=== PATIENT | female | born 1955 | race African-American/Black ===

== ENCOUNTER → 2017-12-11 | Outpatient (CLI) | payer MEDICARE, OTHER ==
[2014-09-07 14:52] VITALS: BP 101/64
[~2017-12-11] MED LIST: ACET500T68 PO; ACID1TAB3 PO; ALBU2.5V5 NEB; ALPR0.5T6 PO; BACL10TA PO; BISA10SU2 RC; CARB15DR3 OP; CIPR500T PO; CYAN10005 PO; DOCU-109 PO; ESCITALOPRAM OX20 MG PO; FAMO20TA38 PO; FENT1PAT15 TD; FLUC100T4 PO; GABA-586 PO; HC/M25OI TP; LORA10TA68 PO; MAGN2400 PO; MULT1TAB52 PO; OLOP2.5D OP; ONDA4TAB11 PO; OXYC-411 PO; OXYC20TA34 PO; OXYM30SP NS; POLY17PO5 PO; PRAV20TA2 PO; PROM118S5 PO; SIME125T PO; SPIR25TA PO; [UNRECOGNIZED DRUG - CODE] PO
--- NOTE | 2017-12-11 16:37 | RAD ---
CT study of the abdomen and pelvis without contrast Clinical indications: Right flank pain. History of stones. TECHNIQUE: Noncontrast helical CT scanning of the abdomen and pelvis was performed. Without contrast, the sensitivity to detect organ pathology and GI tract pathology is decreased. PQRS compliance Statement One or more of the following individualized dose reduction techniques were utilized for this study: 1. Automated exposure control 2. Adjustment of the mA and/or kV according to patient size 3. Use of iterative reconstruction technique COMPARISON: None available. FINDINGS: There is artifact throughout the study related to the patient's larger body habitus. The liver is unremarkable. The spleen is not enlarged. The pancreas is unremarkable on this noncontrast study. The gallbladder is not apparent and therefore appears to be surgically absent. No extrahepatic biliary ductal dilatation is seen. No adrenal mass is evident. There is a staghorn calculus within the upper pole of the left kidney measuring 36 mm in size. Smaller stones are seen within the mid aspect of the left kidney. Stones of the right kidney are seen. The largest is seen within the upper pole measuring 12 mm in size. No hydronephrosis or hydroureter is seen on either side. No ureteral stone is evident. No renal mass is seen on either side on this noncontrast study. No perinephric fluid collection or inflammatory stranding is seen. 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 Urinary bladder is mildly distended. The urinary bladder wall is smooth. Multiple radiopaque stones are seen within the lumen of the posterior right side of the urinary bladder. No uterine mass is seen. No dominant ovarian cyst or mass is evident. No focal aneurysmal dilatation of the abdominal aorta is seen. No enlarged abdominal or pelvic lymphadenopathy is evident. No obstructive bowel pattern is evident. The appendix is normal. The terminal ileum is unremarkable. Mild fecal retention is seen throughout the colon. No diverticulitis is evident. No free air or free fluid or mesenteric edema is seen. There is infiltrate or atelectasis in the right lower lobe. No osteolytic process is evident. IMPRESSION: Bilateral renal stones. Upper pole staghorn calculus of the left kidney. No hydronephrosis or hydroureter or ureteral stone is evident. Multiple stones are seen within the urinary bladder on the right side posteriorly. No acute abnormality of the abdomen or pelvis is evident. Infiltrate or atelectasis of the posterior right lower lobe. Recommend 2 view chest x-ray for further evaluation. Electronically signed by: Luis Allison MD (12/11/2017 4:33 PM) [facility]
== END | disposition home or self-care (01) ==
LOC: CT 14:52
PROVIDERS: ATTEND Urology
DX: N20.0 Calculus of kidney (principal); I10 Essential (primary) hypertension
CPT/HCPCS: 74176

== ENCOUNTER 2018-02-08 02:19 | Inpatient (IN) | payer MEDICARE, OTHER ==
[~2018-02-08] VITALS: Ht 162.6 cm; Wt 135.9 kg
[2018-02-08] VITALS (18 sets, daily range): BP systolic 92–158; BP diastolic 49–74
[2018-02-08] MEDS ORDERED: IV NORMAL SALINE 1,000ML 1,000 ML IV SCH (02:31)
--- NOTE | 2018-02-08 02:31 | ED.ADGEN ---
Past History Past Medical History: Bronchitis, CAD, CHF, COPD, Dementia, Depression, Diabetes, Stroke, UTI, Other Past Surgical History: No Surgical History Alcohol Use: None Drug Use: Opiates Adult General Chief Complaint Chief Complaint -Grunts with noxious stimuli- HPI HPI Patient is a 62 year old female who presents with above hx and complaints of fever and mental status changes at [place]. Pt. per paramedics was hypoxia on arrival. Pt. normally on chronic oxygen dependence of 2- 4 Lit. NC for her hx. of COPD and CHF. Pt. know diabetic -glucose via paramedics was 151. Patient currently very sedate, mental response with noxious stimuli. Snoring respirations. Pt. resident at [facility] 06/23/2012. Patient has additional medical history of hypertension, coronary artery disease, hyperlipidemia, major depressive disorder, chronic respiratory failure with hypoxia, history of episodic respiratory hypercarbia, contraction of muscles left hand, urinary incontinence , GERD, obstructive sleep apnea, morbid obesity, generalized deconditioning. Pt. follows with Dr. Correia. Review of Systems Review of Systems Hx. fever. Pt. poor historian Family History Family History Not currently available Current Medications Current Medications Current Medications Medications (Trade) Dose Ordered Sig/Sandra Start Time Stop Time Status Last Admin Dose Admin Albuterol/ Ipratropium (Duoneb) 3 ml RTQID 02/08/18 08:00 Aspirin (Aspirin) 300 mg 1X ONCE 02/08/18 03:45 02/08/18 03:46 DC 02/08/18 05:57 300 MG Aspirin (Children'S Aspirin) 324 mg 1X ONCE 02/08/18 02:45 02/08/18 03:45 DC Ceftriaxone Sodium 1 gm/ Sodium Chloride 50 ml @ 100 mls/hr DAILY 02/08/18 09:00 UNV Ceftriaxone Sodium (Rocephin Im) 1 gm 1X ONCE 02/08/18 03:00 02/08/18 03:45 DC 02/08/18 05:54 1 GM Ceftriaxone Sodium (Rocephin) 1 gm Q24H 02/09/18 05:00 Enoxaparin Sodium (Lovenox 120mg Syringe) 120 mg 1X ONCE 02/08/18 04:15 02/08/18 04:16 DC 02/08/18 05:53 120 MG Enoxaparin Sodium (Lovenox 150mg Syringe) 130 mg BID 02/08/18 21:00 Info (Do NOT chart on this entry -- for MONITORING) 1 each PRN DAILY PRN 02/08/18 04:15 02/10/18 04:14 Iohexol (Omnipaque 300 Mg/ml) 75 ml 1X ONCE 02/08/18 04:15 02/08/18 04:16 DC 02/08/18 04:15 75 ML Lactated Ringer's 1,000 ml @ 1,000 mls/hr 1X ONCE 02/08/18 04:00 02/08/18 04:59 DC Methylprednisolone Sodium Succinate (SOLU-Medrol 125MG VIAL) 125 mg DAILY 02/09/18 05:00 Ondansetron HCl (Zofran) 4 mg PRN Q4HRS PRN 02/08/18 05:00 02/09/18 04:59 02/08/18 05:53 4 MG Sodium Chloride 250 ml @ As Directed STK-MED ONCE 02/08/18 05:33 02/08/18 05:34 DC Vancomycin HCl (Vanco Per Pharmacy) 1 each PRN DAILY PRN 02/08/18 05:00 UNV Vancomycin HCl (Vancomycin) 1 gm STK-MED ONCE 02/08/18 05:34 02/08/18 05:35 DC Vancomycin HCl 1 gm/Sodium Chloride 250 ml @ 250 mls/hr 1X ONCE 02/08/18 03:00 02/08/18 03:59 DC 02/08/18 05:53 250 MLS/HR See Nursing for NH meds. Allergies Allergies Allergies Coded Allergies Type Severity Reaction Last Updated Verified Penicillins Allergy Severe 02/08/18 Yes I S O L A T I O N *CONTACT* Allergy Unknown 02/08/18 Yes coconut Allergy Unknown 02/08/18 Yes Physical Exam Physical Exam Constitutional: In acute distress, morbidly ill appearance. [] HENT: Normocephalic, atraumatic, bilateral external ears normal, oropharynx moist, no oral exudates, nose normal. [] Eyes: PERRLA, EOMI, conjunctiva normal, no discharge. [] Neck: Normal range of motion, no tenderness, supple, no stridor. More than 17 inches circumference. Upper airway snoring Cardiovascular: Tachycardia Heart rate regular rhythm, no murmur [], PMI to the left Lungs & Thorax: Bilateral breath sounds equal at apex with scattered rhonchi and crackles and wheezing on auscultation []markedly decreased lung volumes. Abdomen: Bowel sounds normal, soft, no tenderness, no masses, no pulsatile masses. [] Morbidly obese. Breakdown of skin in pannus and in groin Skin: Warm, dry, no erythema,yeast /Evangelina rash pannus, left breast cleavage and groin Back: No tenderness, no CVA tenderness. [] Extremities: No tenderness, no cyanosis, no clubbing, ROM intact, bilateral ankle edema. [] Contracted left arm. Dorsal foot plantar flexion contractions Neurologic: Responds only to noxious stimuli, min. response to noxious stimuli of limbs.,will with draw, and cross react] Psychologic: Affect flat, Current Patient Data Lab Results Laboratory Tests Test 02/08/18 02:35 02/08/18 02:44 02/08/18 03:01 02/08/18 03:22 Blood pH 7.37 (7.35-7.45) Blood Gas PCO2 73 mmHg (35-45) *H Blood Gas PO2 71 mmHg (80-100) L Blood Gas HCO3 42 mmol/L (22-26) H Arterial Bld O2 Saturation (Calc) 92 % (92-99) FiO2 36 % Prothrombin Time 10.1 SEC (9.4-11.4) Prothrombin Time INR 1.0 (0.9-1.1) PTT 27 SEC (23-33) D-Dimer (Samantha) 1.05 mg/L (0.00-0.50) H Sodium Level 137 mmol/L (136-145) Potassium Level 5.0 mmol/L (3.5-5.1) Chloride Level 97 mmol/L (98-107) L Carbon Dioxide Level 41 mmol/L (21-32) H Anion Gap -1 (6-14) L Blood Urea Nitrogen 13 mg/dL (7-20) Creatinine 1.6 mg/dL (0.6-1.0) H Estimated GFR (Cockcroft-Gault) 39.3 Glucose Level 173 mg/dL (70-99) H Lactic Acid Level 1.2 mmol/L (0.4-2.0) Calcium Level 10.7 mg/dL (8.5-10.1) H Magnesium Level 1.8 mg/dL (1.8-2.4) Total Bilirubin 0.3 mg/dL (0.2-1.0) Direct Bilirubin < 0.1 mg/dL (0.0-0.2) Aspartate Amino Transferase (AST) 29 U/L (15-37) Alanine Aminotransferase (ALT) 24 U/L (14-59) Alkaline Phosphatase 76 U/L (46-116) Creatine Kinase 43 U/L (26-192) Troponin I Quantitative < 0.017 ng/mL (0-0.055) [id number] Natriuretic Peptide 100 pg/mL (0-124) Total Protein 8.0 g/dL (6.4-8.2) Albumin 2.6 g/dL (3.4-5.0) L Lipase 50 U/L (73-393) L Urine Collection Type U cath Urine Color Yellow Urine Clarity Hazy Urine pH 7.0 Urine Specific [place] 1.015 Urine Protein Trace (NEG-TRACE) Urine Glucose (UA) Neg mg/dL (NEG) Urine Ketones (Stick) Neg mg/dL (NEG) Urine Blood Large (NEG) Urine Nitrite Neg (NEG) Urine Bilirubin Neg (NEG) Urine Urobilinogen Dipstick 0.2 mg/dL (0.2 mg/dL) Urine Leukocyte Esterase Large (NEG) Urine RBC >40 /HPF (0-2) Urine WBC >40 /HPF (0-4) Urine Squamous Epithelial Cells Occ /LPF Urine Bacteria Many /HPF (0-FEW) Urine Opiates Screen Neg (NEG) Urine Methadone Screen Neg (NEG) Urine Barbiturates Neg (NEG) Urine Phencyclidine Screen Neg (NEG) Urine Amphetamine/Methamphetamine Neg (NEG) Urine Benzodiazepines Screen Neg (NEG) Urine Cocaine Screen Neg (NEG) Urine Cannabinoids Screen Neg (NEG) Urine Ethyl Alcohol Neg (NEG) White Blood Count 20.4 x10^3/uL (4.0-11.0) H Red Blood Count 4.10 x10^6/uL (3.50-5.40) Hemoglobin 11.8 g/dL (12.0-15.5) L Hematocrit 35.7 % (36.0-47.0) L Mean Corpuscular Volume 87 fL (79-100) Mean Corpuscular Hemoglobin 29 pg (25-35) Mean Corpuscular Hemoglobin Concent 33 g/dL (31-37) Red Cell Distribution Width 14.9 % (11.5-14.5) H Platelet Count 319 x10^3/uL (140-400) Neutrophils (%) (Auto) 91 % (31-73) H Lymphocytes (%) (Auto) 4 % (24-48) L Monocytes (%) (Auto) 5 % (0-9) Eosinophils (%) (Auto) 0 % (0-3) Basophils (%) (Auto) 0 % (0-3) Neutrophils # (Auto) 18.5 x10^3uL (1.8-7.7) H Lymphocytes # (Auto) 0.8 x10^3/uL (1.0-4.8) L Monocytes # (Auto) 1.0 x10^3/uL (0.0-1.1) Eosinophils # (Auto) 0.0 x10^3/uL (0.0-0.7) Basophils # (Auto) 0.0 x10^3/uL (0.0-0.2) Segmented Neutrophils % 88 % (35-66) H Band Neutrophils % 8 % (0-9) Lymphocytes % 2 % (24-48) L Monocytes % 2 % (0-10) Platelet Estimate Adequate (ADEQUATE) EKG EKG My interpretation of EKG shows a sinus rhythm at 93 bpm. There are contour abnormalities in anterior lateral region. No findings acute STEMI with contralateral changes.[] Radiology/Procedures Radiology/Procedures My interpretation of chest x-ray shows cardiomegaly[]. My interpretation CT of head shows no shift, mass, edema, bleed, or bleed. Does have findings of white matter disease. Appears had old lacunar infarct. Course & Med Decision Making Course & Med Decision Making Pertinent Labs and Imaging studies reviewed. (See chart for details) Pt. mental status improved shortly after application BiPap 16/4, on 35% Oxygen. Critical care. 120 min [] Final Impression Final Impression 1. Mental status change 2. Respiratory Failure-hypoxia and hypercarbia 3. DM-[]173 4. UTI 5. Sepsis 6. Leukocytosis 20.4 7. Elevated Creat. 1.6 8. Malnutrition- Alb. 2.6 9. Anemia - 11.8 10. Hx. COPD 11. Hx. CADz 12. Hx of Depression 13. Morbid Obesity Dragon Disclaimer Dragon Disclaimer This electronic medical record was generated, in whole or in part, using a voice recognition dictation system. BRYANNA JOHANSEN MD Feb 08, 2018 02:30
[2018-02-08] MEDS ORDERED: ASPIRIN 81 MG TAB.CHEW PO ONE (02:45)
[2018-02-08 02:58] LABS: BGAS PH 7.37 (7.35-7.45)
[2018-02-08] MEDS ORDERED: cefTRIAXone IM 1 GM VIAL IM ONE (03:00)
[2018-02-08] MEDS ORDERED: VANCOMYCIN 1 GM in IV NORMAL SALINE 250ML 250 ML IV ONE ×2 (03:00→08:00)
[2018-02-08] MEDS ORDERED: IPRATRPIUM/ALBUTEROL 0.5/2.5MG 3 ML NEBU. NEB ONE (03:00)
--- NOTE | 2018-02-08 03:13 | EKG ---
[address] [address] Test Date: 2018-02-08 Test Time: 03:09:15 Pat Name: TROY SANTIZO Department: Room: Gender: F Oil Well Engineer: : 1955 Requested By: BRYANNA JOHANSEN Order Number: [id number] Reading MD: Gaurav Haider Measurements Intervals [place] Rate: 93 P: 52 W[place]: 136 QRS: 11 QRSD: 98 T: 52 QT: 318 QTc: 398 Interpretive Statements SINUS RHYTHM Electronically Signed On 02-09-2018 11:10:34 CDT by Gaurav Haider
[2018-02-08 03:30] LABS: CLARITY,URINE HAZY; COLOR,URINE YELLOW
[2018-02-08 03:31] LABS: BACTERIA,URINE MANY /HPF (0-FEW); BILIRUBIN,URINE NEG (NEG); GLUCOSE,URINE NEG (NEG); NITRITE,URINE NEG (NEG); RBC,URINE >40 /HPF (0-2); SQUAMOUS EPITHELIAL CELL,UR OCC /LPF; UROBILINOGEN,URINE 0.2 mg/dL (0.2 mg/dL); WBC,URINE >40 /HPF (0-4)
[2018-02-08 03:37] LABS: BASO % 0 % (0-3); EOS % 0 % (0-3); HEMATOCRIT 35.7 % (36.0-47.0); HEMOGLOBIN 11.8 g/dL (12.0-15.5); LYMPH # 0.8 x10^3/uL (1.0-4.8); LYMPH % 4 % (24-48); MEAN CORPUSCULAR HEMOGLOBIN 29 pg (25-35); MEAN CORPUSCULAR HGB CONC 33 g/dL (31-37); MEAN CORPUSCULAR VOLUME 87 fL (79-100); MONO % 5 % (0-9); NEUT # 18.5 x10^3uL (1.8-7.7); NEUT % 91 % (31-73); PLATELET COUNT 319 x10^3/uL (140-400); RED CELL DISTRIBUTION WIDTH 14.9 % (11.5-14.5); WHITE BLOOD COUNT 20.4 x10^3/uL (4.0-11.0)
[2018-02-08 03:40] LABS: BARBITURATES NEG (NEG); BENZODIAZEPINES NEG (NEG); CANNABINOIDS NEG (NEG); COCAINE NEG (NEG); METHADONE NEG (NEG); OPIATES NEG (NEG); PHENCYCLIDINE NEG (NEG)
[2018-02-08 03:42] LABS: AMPHETAMINE/METHAMPHETAMINE NEG (NEG)
[2018-02-08 03:43] LABS: ALBUMIN 2.6 g/dL (3.4-5.0); ALK PHOS 76 U/L (46-116); ALT (SGPT) 24 U/L (14-59); ANION GAP -1 (6-14); AST (SGOT) 29 U/L (15-37); BLOOD UREA NITROGEN 13 mg/dL (7-20); CALCIUM 10.7 mg/dL (8.5-10.1); CARBON DIOXIDE 41 mmol/L (21-32); CHLORIDE 97 mmol/L (98-107); CREATININE 1.6 mg/dL (0.6-1.0); DIRECT BILIRUBIN < 0.1 mg/dL (0.0-0.2); GFR 39.3; GLUCOSE 173 mg/dL (70-99); LIPASE 50 U/L (73-393); MAGNESIUM 1.8 mg/dL (1.8-2.4); SODIUM 137 mmol/L (136-145); TOTAL BILIRUBIN 0.3 mg/dL (0.2-1.0)
[2018-02-08] MEDS ORDERED: ASPIRIN 300 MG SUPP.RECT PR ONE (03:45)
[2018-02-08 03:58] LABS: % BANDS 8 % (0-9); % LYMPHS 2 % (24-48); % MONOS 2 % (0-10); % SEGS 88 % (35-66); PLT ESTIMATE ADEQUATE (ADEQUATE)
[2018-02-08] MEDS ORDERED: IV RINGERS SOLUTION,LACTATED 1,000 ML IV ONE (04:00)
[2018-02-08] MEDS ORDERED: IOHEXOL 300 MG/ML 75 ML VIAL. IV ONE (04:15)
[2018-02-08] MEDS ORDERED: ENOXAPARIN ** NOTE DOSE ** SYRINGE SQ ONE (04:15)
[2018-02-08] MEDS ORDERED: CONTRAST GIVEN MC PRN (04:15)
[2018-02-08] MEDS ORDERED: methylPREDNISolone SOD SUCC PF 125 MG/2 ML VIAL. IV ONE (04:15)
[2018-02-08] MEDS ORDERED: ONDANSETRON PF 4 MG/2 ML VIAL. IV PRN (05:00)
[2018-02-08] MEDS ORDERED: VANCOMYCIN PER PHARMACY MC PRN (05:00)
--- NOTE | 2018-02-08 05:04 | RAD ---
PQRS Compliance statement: One or more of the following individualized dose reduction techniques were utilized for this examination: 1. Automated exposure control. 2. Adjustment of the mA and/or kV according to patient size. 3. Use of iterative reconstruction technique. Indication:hypoxia, unresponsive
patient weights over 300 lbs and was rubbing the aperture of the gantry TECHNIQUE: CT head without IV contrast COMPARISON:09/05/2014 FINDINGS: No pathologic extra-axial or intra-axial fluid collection. The ventricles and basal cisterns are within normal limits. No acute intracranial bleed. Small area of low-attenuation is seen in the right basal ganglia with CSF density. Periventricular low-attenuation is seen along the right lateral ventricle. No suspicious bony lesion. Visualized paranasal sinuses and mastoid air cells are clear. Orbits within normal limits. IMPRESSION: 1. No acute intracranial process. If concern for acute ischemic stroke is high, please consider MRI brain. 2. Right basal ganglia lacunar infarct, age indeterminate but most likely old. Electronically signed by: Pantera Lewis DO (02/08/2018 5:01 AM) [facility]
--- NOTE | 2018-02-08 05:14 | RAD ---
PQRS Compliance statement: One or more of the following individualized dose reduction techniques were utilized for this examination: 1. Automated exposure control. 2. Adjustment of the mA and/or kV according to patient size. 3. Use of iterative reconstruction technique. Indication:hypoxia, copd, unresponsive
patient weights over 300 lbs and was rubbing the aperture of the gantry TECHNIQUE: CT angiogram of the chest with IV contrast with multiplanar MIP reformats. COMPARISON: None FINDINGS: Nondiagnostic PE study due to contrast bolus timing. Heart is normal in size. No pericardial or pleural effusion. Calcified large mediastinal lymph nodes seen.. No enlarged axillary, mediastinal or hilar lymph nodes. Patulous esophagus. Subsegmental atelectasis in the right lower lobe. Otherwise, lungs are clear. Scattered areas of mosaic attenuation is seen in the lungs. No suspicious bony lesion. IMPRESSION: 1. Nondiagnostic PE study due to technical difficulties while scanning. 2. No pneumonia. 3. Scattered areas of mosaic attenuation the lungs may be from small vessel or small airway disease. Electronically signed by: Pantera Lewis DO (02/08/2018 5:11 AM) [facility]
[2018-02-08] MEDS ORDERED: IV NORMAL SALINE 250ML 250 ML ONE (05:33)
[2018-02-08] MEDS ORDERED: VANCOMYCIN 1 GM VIAL. ONE (05:34)
--- NOTE | 2018-02-08 07:45 | RAD ---
Portable chest, 02/08/2018: HISTORY: Respiratory distress, patient unresponsive Comparison is made to a study from 09/05/2014. The heart is at the upper limits of normal in size. There are large calcified right mediastinal and hilar lymph nodes. No pulmonary infiltrate is seen. There is no evidence of pleural fluid. IMPRESSION: 1. Borderline cardiomegaly 2. No acute infiltrates. Electronically signed by: Jeison Torres MD (02/08/2018 7:42 AM) [facility]
[2018-02-08] MEDS: IPRATRPIUM/ALBUTEROL 0.5/2.5MG 3 ML NEBU. NEB SCH ×4 (08:20→20:50)
[2018-02-08] MEDS ORDERED: ASPI-612 PO (08:30)
[2018-02-08] MEDS ORDERED: BENZ1LOZ48 MM (08:30)
[2018-02-08] MEDS ORDERED: ATOR10TA PO (08:30)
[2018-02-08] MEDS ORDERED: GUAI600T47 PO (08:30)
[2018-02-08] MEDS ORDERED: OXYB5TAB7 PO (08:56)
[2018-02-08] MEDS ORDERED: MINE473L5 TP (08:56)
[2018-02-08] MEDS ORDERED: AMLO10TA6 PO (08:56)
[2018-02-08] MEDS ORDERED: ALPR0.25 PO (08:56)
[2018-02-08] MEDS ORDERED: SIME80TA14 PO (08:56)
[2018-02-08] MEDS ORDERED: DIPH25CA58 PO (08:56)
[2018-02-08] MEDS ORDERED: GUAI118L59 PO (08:56)
[2018-02-08] MEDS ORDERED: TRAM50TA PO (08:56)
[2018-02-08] MEDS ORDERED: CITA10TA8 PO (08:56)
[2018-02-08] MEDS ORDERED: FAMO20TA5 PO (08:56)
[2018-02-08 10:29] LABS: BGAS PH 7.4 (7.35-7.45)
[2018-02-08] MEDS: IV NORMAL SALINE 1,000ML 1,000 ML IV SCH ×2 (11:10→18:08)
[2018-02-08 17:41] LABS: BGAS PH 7.4 (7.35-7.45)
--- NOTE | 2018-02-08 17:55 | RAD ---
Bilateral Leg Venous Doppler Ultrasound, 02/08/2018 Indication: Bilateral lower extremity swelling, elevated d-dimer Comparison: None available Procedure: Real-time grayscale, color flow color duplex Doppler and spectral analysis are obtained with and without compression in the area of the common femoral vein, superficial femoral vein - femoral vein junction, main femoral vein (superficial femoral vein) and popliteal vein. Veins of the proximal calf are also imaged. Findings: There is normal duplex flow, color flow and compressibility of all visualized vein segments. No evidence of deep venous thrombus is present. Impression: Negative venous Doppler of bilateral lower extremity Electronically signed by: Myranda Mesa MD (02/08/2018 5:52 PM) [facility]
[2018-02-08] MEDS: ENOXAPARIN ** NOTE DOSE ** SYRINGE SQ SCH (21:56)
[2018-02-08] MEDS: LACTOBACILLUS RHAMNOSUS GG 1 CAPSULE. PO SCH (21:56)
[2018-02-08] MEDS ORDERED: MINERAL OIL/PETROLATUM TOPICAL CREAM 113GM JAR. TP PRN (22:45)
[2018-02-08] MEDS ORDERED: BENZOCAINE/MENTHOL LOZNGE 18'S BOX. MM PRN (22:45)
[2018-02-08] MEDS ORDERED: FAMOTIDINE 20 MG TABLET PO PRN (22:45)
[2018-02-08] MEDS ORDERED: guaiFENesin DM 200MG/20MG 10 ML SYRUP PO PRN (22:45)
[2018-02-08] MEDS ORDERED: SIMETHICONE 80 MG TAB.CHEW PO PRN (22:45)
[2018-02-08] MEDS ORDERED: BISACODYL 10 MG SUPP.RECT RC PRN (22:45)
[2018-02-08] MEDS ORDERED: ALBUTEROL SULFATE 2.5 MG/3 ML NEBU. NEB PRN (22:45)
[2018-02-08] MEDS ORDERED: ONDANSETRON ODT 4 MG TAB.RAPDIS PO PRN (22:45)
[2018-02-08] MEDS ORDERED: MAGNESIUM HYDROXIDE 2,400 MG/30 ML ORAL.SUSP. PO PRN (22:45)
--- NOTE | 2018-02-08 23:52 | PDOC1 ---
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 Of Magnesia) 22:45 Mineral PHA 02/08/18 In Process Oil/Petrolatum 22:45 Multivitamin With PHA 02/09/18 In Process Mineral (Thera-M Plus) 09:00 Ondansetron Odt PHA 02/08/18 In Process (Zofran Odt) 22:45 Polyethylene Glycol PHA 02/09/18 In Process 3350 (Miralax) 09:00 Comprehensive LAB 02/08/18 In Process Metabolic Panel 22:47 Cbc W Autodiff LAB 02/08/18 In Process 22:47 Vitamin D,Total LAB 02/08/18 In Process 22:47 Intact Parathyroid LAB 02/08/18 In Process Hormone 22:47 Vital Signs Date Time Temp Pulse Resp B/P (MAP) Pulse Ox O2 Delivery O2 Flow Rate FiO2 02/08/18 22:48 90 32 158/73 (101) 98 Room Air 02/08/18 20:53 4.0 02/08/18 12:00 97.1 ASHLEY RIVERA DO Feb 08, 2018 23:52
[2018-02-08 23:57] LABS: BASO # 0.1 x10^3/uL (0.0-0.2); BASO % 1 % (0-3); EOS % 0 % (0-3); HEMATOCRIT 34.7 % (36.0-47.0); HEMOGLOBIN 10.9 g/dL (12.0-15.5); LYMPH % 4 % (24-48); MEAN CORPUSCULAR HEMOGLOBIN 28 pg (25-35); MEAN CORPUSCULAR HGB CONC 32 g/dL (31-37); MEAN CORPUSCULAR VOLUME 88 fL (79-100); MONO # 1.3 x10^3/uL (0.0-1.1); MONO % 5 % (0-9); NEUT # 23.7 x10^3uL (1.8-7.7); NEUT % 91 % (31-73); PLATELET COUNT 322 x10^3/uL (140-400); RED BLOOD COUNT 3.93 x10^6/uL (3.50-5.40); RED CELL DISTRIBUTION WIDTH 15.3 % (11.5-14.5); WHITE BLOOD COUNT 26.1 x10^3/uL (4.0-11.0)
[2018-02-09] VITALS (12 sets, daily range): BP systolic 1–148; BP diastolic 54–81
[2018-02-09] MEDS: ACETAMINOPHEN 500 MG TABLET PO PRN ×4 (00:09→21:40)
[2018-02-09] MEDS: IV NORMAL SALINE 1,000ML 1,000 ML IV SCH ×2 (00:12→08:39)
[2018-02-09 00:17] LABS: ALBUMIN 2.2 g/dL (3.4-5.0); ALBUMIN/GLOBULIN RATIO 0.4 (1.0-1.7); CREATININE 1.1 mg/dL (0.6-1.0); GFR 60.5; POTASSIUM 4.3 mmol/L (3.5-5.1); TOTAL BILIRUBIN 0.2 mg/dL (0.2-1.0); TOTAL PROTEIN 7.4 g/dL (6.4-8.2)
[2018-02-09] MEDS: IPRATRPIUM/ALBUTEROL 0.5/2.5MG 3 ML NEBU. NEB SCH ×4 (04:40→19:32)
[2018-02-09] MEDS: cefTRIAXone IV Push 1 GM VIAL. IVP SCH (04:54)
[2018-02-09] MEDS: methylPREDNISolone SOD SUCC PF 125 MG/2 ML VIAL. IV SCH ×2 (04:55→08:37)
[2018-02-09] MEDS: VANCOMYCIN 2 GM in IV NORMAL SALINE 500ML 500 ML IV SCH (06:10)
[2018-02-09 07:00] LABS: CALCIUM 9.9 mg/dL (8.5-10.1); GFR 67.5; POTASSIUM 4.4 mmol/L (3.5-5.1)
[2018-02-09 07:01] LABS: BASO % 0 % (0-3); EOS % 0 % (0-3); HEMATOCRIT 35.2 % (36.0-47.0); HEMOGLOBIN 11.3 g/dL (12.0-15.5); LYMPH # 1.3 x10^3/uL (1.0-4.8); LYMPH % 6 % (24-48); MEAN CORPUSCULAR HEMOGLOBIN 28 pg (25-35); MEAN CORPUSCULAR HGB CONC 32 g/dL (31-37); MEAN CORPUSCULAR VOLUME 88 fL (79-100); MONO # 1.4 x10^3/uL (0.0-1.1); MONO % 7 % (0-9); NEUT # 19.3 x10^3uL (1.8-7.7); NEUT % 87 % (31-73); PLATELET COUNT 310 x10^3/uL (140-400); RED BLOOD COUNT 3.99 x10^6/uL (3.50-5.40); RED CELL DISTRIBUTION WIDTH 15.3 % (11.5-14.5); WHITE BLOOD COUNT 22.1 x10^3/uL (4.0-11.0)
[2018-02-09] MEDS ORDERED: HYDROCORTISONE 1% TOPICAL CREAM 30GM TUBE. TP PRN (07:15)
[2018-02-09] MEDS ORDERED: POLYVINYL ALCOHOL/POVIDONE/PF OPHTH SOLUTION DROPERETTE. OU PRN (07:15)
[2018-02-09] MEDS: LACTOBACILLUS RHAMNOSUS GG 1 CAPSULE. PO SCH ×4 (07:19→20:39)
[2018-02-09] MEDS: ENOXAPARIN ** NOTE DOSE ** SYRINGE SQ SCH ×2 (08:36→20:39)
[2018-02-09] MEDS: DOCUSATE SODIUM 100 MG CAPSULE PO SCH (08:37)
[2018-02-09] MEDS: ATORVASTATIN CALCIUM 10 MG TABLET. PO SCH (08:37)
[2018-02-09] MEDS: CYANOCOBALAMIN (VITAMIN B-12) 1,000 MCG TABLET. PO SCH (08:37)
[2018-02-09] MEDS: CALCIUM POLYCARBOPHIL 625 MG TABLET PO SCH ×2 (08:37→20:38)
[2018-02-09] MEDS: ASPIRIN ENTERIC COATED 81 MG TABLET.DR. PO SCH (08:37)
[2018-02-09] MEDS: amLODIPine BESYLATE 10 MG TABLET PO SCH (08:37)
[2018-02-09] MEDS: ALPRAZolam 0.25 MG TABLET PO PRN ×2 (08:37→14:41)
[2018-02-09] MEDS: MULTIVITAMIN with MINERAL TABLET. PO SCH (08:37)
[2018-02-09] MEDS: GABAPENTIN 300 MG CAPSULE. PO SCH ×3 (08:37→20:38)
[2018-02-09] MEDS: POLYETHYLENE GLYCOL 3350 17 GM PACKET. PO SCH (08:38)
[2018-02-09 09:42] LABS: % BANDS 5 % (0-9); % LYMPHS 11 % (24-48); % MONOS 5 % (0-10); % SEGS 78 % (35-66); PLT ESTIMATE ADEQUATE (ADEQUATE)
[2018-02-09] MEDS: CITALOPRAM 10 MG TABLET. PO SCH (11:07)
[2018-02-09 12:50] LABS: BGAS PH 7.42 (7.35-7.45)
[2018-02-09] MEDS: traMADol 50 MG TABLET PO PRN (14:40)
[2018-02-09] MEDS: diphenhydrAMINE HCL 25 MG CAPSULE PO PRN (14:40)
--- NOTE | 2018-02-09 16:02 | PDOC ---
SUBJECTIVE: Patient has shown steady symptomatic improvement. She's been off bipap since yesterday afternoon alternating between room air and her home 2-4L O2 via NC with stable sats. Creatinine improved to 1.0 with hydration, vitamin D low 23.2 , ABGs continue to improve all parameters. I find her lying awake today, she states she does not recognize me from yesterday. Still having some body aches and dyspnea but says she's overall feeling better. She is concerned about her overall weakness and expresses interest in PT/OT. ' OBJECTIVE: Problems: Problems Medical Problems: (1) Hypercapnia Status: Acute (2) Mental status change Status: Acute Vital Signs: Vital Signs Date Time Temp Pulse Resp B/P (MAP) Pulse Ox O2 Delivery O2 Flow Rate FiO2 02/09/18 14:40 32 96 Nasal Cannula 3.0 02/09/18 11:00 76 132/76 (94) 02/09/18 08:00 98.4 I & O Intake and Output 02/09/18 07:00 Intake Total 3417 ml Output Total 2775 ml Balance 642 ml Intake Oral 620 ml IV Total 2797 ml Output Urine Total 2775 ml # Voids 2 Labs: Laboratory Tests Test 02/08/18 02:35 02/08/18 02:44 02/08/18 03:01 02/08/18 03:22 Blood Gas pH 7.37 (7.35-7.45) Blood Gas PCO2 73 mmHg (35-45) Blood Gas PO2 71 mmHg (80-100) Blood Gas HCO3 42 mmol/L (22-26) Arterial Bld O2 Saturation (Calc) 92 % (92-99) FiO2 36 % Prothrombin Time 10.1 SEC (9.4-11.4) Prothromb Time International Ratio 1.0 (0.9-1.1) Activated Partial Thromboplast Time 27 SEC (23-33) D-Dimer (Samantha) 1.05 mg/L (0.00-0.50) Sodium Level 137 mmol/L (136-145) Potassium Level 5.0 mmol/L (3.5-5.1) Chloride Level 97 mmol/L (98-107) Carbon Dioxide Level 41 mmol/L (21-32) Anion Gap -1 (6-14) Blood Urea Nitrogen 13 mg/dL (7-20) Creatinine 1.6 mg/dL (0.6-1.0) Estimated GFR (Cockcroft-Gault) 39.3 Glucose Level 173 mg/dL (70-99) Lactic Acid Level 1.2 mmol/L (0.4-2.0) Calcium Level 10.7 mg/dL (8.5-10.1) Magnesium Level 1.8 mg/dL (1.8-2.4) Total Bilirubin 0.3 mg/dL (0.2-1.0) Direct Bilirubin < 0.1 mg/dL (0.0-0.2) Aspartate Amino Transf (AST/SGOT) 29 U/L (15-37) Alanine Aminotransferase (ALT/SGPT) 24 U/L (14-59) Alkaline Phosphatase 76 U/L (46-116) Creatine Kinase 43 U/L (26-192) Troponin I Quantitative < 0.017 ng/mL (0-0.055) OZ-Iyy-M-Type Natriuretic Peptide 100 pg/mL (0-124) Total Protein 8.0 g/dL (6.4-8.2) Albumin 2.6 g/dL (3.4-5.0) Lipase 50 U/L (73-393) Thyroid Stimulating Hormone (TSH) 1.481 uIU/mL (0.358-3.740) Urine Collection Type U cath Urine Color Yellow Urine Clarity Hazy Urine pH 7.0 Urine Specific [place] 1.015 Urine Protein Trace (NEG-TRACE) Urine Glucose (UA) Neg mg/dL (NEG) Urine Ketones (Stick) Neg mg/dL (NEG) Urine Blood Large (NEG) Urine Nitrite Neg (NEG) Urine Bilirubin Neg (NEG) Urine Urobilinogen Dipstick 0.2 mg/dL (0.2 mg/dL) Urine Leukocyte Esterase Large (NEG) Urine RBC >40 /HPF (0-2) Urine WBC >40 /HPF (0-4) Urine Squamous Epithelial Cells Occ /LPF Urine Bacteria Many /HPF (0-FEW) Urine Opiates Screen Neg (NEG) Urine Methadone Screen Neg (NEG) Urine Barbiturates Neg (NEG) Urine Phencyclidine Screen Neg (NEG) Urine Amphetamine/Methamphetamine Neg (NEG) Urine Benzodiazepines Screen Neg (NEG) Urine Cocaine Screen Neg (NEG) Urine Cannabinoids Screen Neg (NEG) Urine Ethyl Alcohol Neg (NEG) White Blood Count 20.4 x10^3/uL (4.0-11.0) Red Blood Count 4.10 x10^6/uL (3.50-5.40) Hemoglobin 11.8 g/dL (12.0-15.5) Hematocrit 35.7 % (36.0-47.0) Mean Corpuscular Volume 87 fL (79-100) Mean Corpuscular Hemoglobin 29 pg (25-35) Mean Corpuscular Hemoglobin Concent 33 g/dL (31-37) Red Cell Distribution Width 14.9 % (11.5-14.5) Platelet Count 319 x10^3/uL (140-400) Neutrophils (%) (Auto) 91 % (31-73) Lymphocytes (%) (Auto) 4 % (24-48) Monocytes (%) (Auto) 5 % (0-9) Eosinophils (%) (Auto) 0 % (0-3) Basophils (%) (Auto) 0 % (0-3) Neutrophils # (Auto) 18.5 x10^3uL (1.8-7.7) Lymphocytes # (Auto) 0.8 x10^3/uL (1.0-4.8) Monocytes # (Auto) 1.0 x10^3/uL (0.0-1.1) Eosinophils # (Auto) 0.0 x10^3/uL (0.0-0.7) Basophils # (Auto) 0.0 x10^3/uL (0.0-0.2) Segmented Neutrophils % 88 % (35-66) Band Neutrophils % 8 % (0-9) Lymphocytes % 2 % (24-48) Monocytes % 2 % (0-10) Platelet Estimate Adequate (ADEQUATE) Test 02/08/18 10:15 02/08/18 17:20 02/08/18 17:36 02/08/18 23:45 Blood Gas pH 7.40 (7.35-7.45) 7.40 (7.35-7.45) Blood Gas PCO2 63 mmHg (35-45) 58 mmHg (35-45) Blood Gas PO2 82 mmHg (80-100) 70 mmHg (80-100) Blood Gas HCO3 39 mmol/L (22-26) 36 mmol/L (22-26) Arterial Bld O2 Saturation (Calc) 96 % (92-99) 93 % (92-99) FiO2 35 % 32 % Glucose (Fingerstick) 175 mg/dL (70-99) White Blood Count 26.1 x10^3/uL (4.0-11.0) Red Blood Count 3.93 x10^6/uL (3.50-5.40) Hemoglobin 10.9 g/dL (12.0-15.5) Hematocrit 34.7 % (36.0-47.0) Mean Corpuscular Volume 88 fL (79-100) Mean Corpuscular Hemoglobin 28 pg (25-35) Mean Corpuscular Hemoglobin Concent 32 g/dL (31-37) Red Cell Distribution Width 15.3 % (11.5-14.5) Platelet Count 322 x10^3/uL (140-400) Neutrophils (%) (Auto) 91 % (31-73) Lymphocytes (%) (Auto) 4 % (24-48) Monocytes (%) (Auto) 5 % (0-9) Eosinophils (%) (Auto) 0 % (0-3) Basophils (%) (Auto) 1 % (0-3) Neutrophils # (Auto) 23.7 x10^3uL (1.8-7.7) Lymphocytes # (Auto) 1.0 x10^3/uL (1.0-4.8) Monocytes # (Auto) 1.3 x10^3/uL (0.0-1.1) Eosinophils # (Auto) 0.0 x10^3/uL (0.0-0.7) Basophils # (Auto) 0.1 x10^3/uL (0.0-0.2) Sodium Level 138 mmol/L (136-145) Potassium Level 4.3 mmol/L (3.5-5.1) Chloride Level 100 mmol/L (98-107) Carbon Dioxide Level 35 mmol/L (21-32) Anion Gap 3 (6-14) Blood Urea Nitrogen 13 mg/dL (7-20) Creatinine 1.1 mg/dL (0.6-1.0) Estimated GFR (Cockcroft-Gault) 60.5 BUN/Creatinine Ratio 12 (6-20) Glucose Level 149 mg/dL (70-99) Calcium Level 10.0 mg/dL (8.5-10.1) Total Bilirubin 0.2 mg/dL (0.2-1.0) Aspartate Amino Transf (AST/SGOT) 15 U/L (15-37) Alanine Aminotransferase (ALT/SGPT) 20 U/L (14-59) Alkaline Phosphatase 69 U/L (46-116) Total Protein 7.4 g/dL (6.4-8.2) Albumin 2.2 g/dL (3.4-5.0) Albumin/Globulin Ratio 0.4 (1.0-1.7) 25-Hydroxy Vitamin D Total 23.2 ng/mL (30-100) Test 02/09/18 06:00 02/09/18 06:56 02/09/18 12:37 02/09/18 12:38 White Blood Count 22.1 x10^3/uL (4.0-11.0) Red Blood Count 3.99 x10^6/uL (3.50-5.40) Hemoglobin 11.3 g/dL (12.0-15.5) Hematocrit 35.2 % (36.0-47.0) Mean Corpuscular Volume 88 fL (79-100) Mean Corpuscular Hemoglobin 28 pg (25-35) Mean Corpuscular Hemoglobin Concent 32 g/dL (31-37) Red Cell Distribution Width 15.3 % (11.5-14.5) Platelet Count 310 x10^3/uL (140-400) Neutrophils (%) (Auto) 87 % (31-73) Lymphocytes (%) (Auto) 6 % (24-48) Monocytes (%) (Auto) 7 % (0-9) Eosinophils (%) (Auto) 0 % (0-3) Basophils (%) (Auto) 0 % (0-3) Neutrophils # (Auto) 19.3 x10^3uL (1.8-7.7) Lymphocytes # (Auto) 1.3 x10^3/uL (1.0-4.8) Monocytes # (Auto) 1.4 x10^3/uL (0.0-1.1) Eosinophils # (Auto) 0.0 x10^3/uL (0.0-0.7) Basophils # (Auto) 0.0 x10^3/uL (0.0-0.2) Segmented Neutrophils % 78 % (35-66) Band Neutrophils % 5 % (0-9) Lymphocytes % 11 % (24-48) Monocytes % 5 % (0-10) Platelet Estimate Adequate (ADEQUATE) Sodium Level 140 mmol/L (136-145) Potassium Level 4.4 mmol/L (3.5-5.1) Chloride Level 100 mmol/L (98-107) Carbon Dioxide Level 36 mmol/L (21-32) Anion Gap 4 (6-14) Blood Urea Nitrogen 12 mg/dL (7-20) Creatinine 1.0 mg/dL (0.6-1.0) Estimated GFR (Cockcroft-Gault) 67.5 Glucose Level 141 mg/dL (70-99) Calcium Level 9.9 mg/dL (8.5-10.1) Glucose (Fingerstick) 149 mg/dL (70-99) 197 mg/dL (70-99) Blood Gas pH 7.42 (7.35-7.45) Blood Gas PCO2 58 mmHg (35-45) Blood Gas PO2 102 mmHg (80-100) Blood Gas HCO3 37 mmol/L (22-26) Arterial Bld O2 Saturation (Calc) 98 % (92-99) FiO2 36 % Physical Exam: Constitutional: morbidly obese ill appearing. NAD HENT: Normocephalic, atraumatic, bilateral external ears normal, oropharynx moist, no oral exudates, nose normal. Eyes: ARVIND, EOMI, conjunctiva normal, no discharge. Neck: Normal range of motion, no tenderness, supple, no stridor. Cardiovascular: S1 N,S2N. No murmurs. No rubs or clicks. Thorax and Lungs: Improved air movement, diffuse wheezes Abdomen: Bowel sounds normal, soft, no tenderness Skin: improved turgor, taiwo as before ASSESSMENT: Acute on chronic respiratory failure: improved, currently close to baseline using home O2 UTI: vancomycin, culture pending, urine clear today Sepsis: blood cultures pending KATHRYN: improved with hydration Cr 1.0 DM: continue SSI Cutaneous Candidiasis: nystatin powder Hypercalcemia: PTH pending Vitamin D deficiency: initiate supplementation Generalized Weakness: PT/OT eval Discontinue IV fluids, decrease lovenox to prophylaxis dosing. Downgrade to telemetry ASHLEY RIVERA DO Feb 09, 2018 16:02
[2018-02-09] MEDS: NYSTATIN TOPICAL POWDER 15GM BOTTLE. TP SCH (20:39)
[2018-02-10] MEDS: traMADol 50 MG TABLET PO PRN (00:17)
[2018-02-10] MEDS: cefTRIAXone IV Push 1 GM VIAL. IVP SCH (05:01)
[2018-02-10] MEDS: IPRATRPIUM/ALBUTEROL 0.5/2.5MG 3 ML NEBU. NEB SCH ×4 (05:28→20:26)
[2018-02-10] MEDS: VANCOMYCIN 2 GM in IV NORMAL SALINE 500ML 500 ML IV SCH (06:03)
[2018-02-10 06:10] LABS: CALCIUM PTH 9.4 mg/dL (8.7-10.3); CREATININE PTH 0.84 mg/dL (0.57-1.00); PTH INTACT 67 pg/mL (15-65)
[2018-02-10 07:30] LABS: BASO # 0.1 x10^3/uL (0.0-0.2); BASO % 1 % (0-3); EOS % 0 % (0-3); HEMATOCRIT 36.4 % (36.0-47.0); HEMOGLOBIN 11.7 g/dL (12.0-15.5); LYMPH # 1.4 x10^3/uL (1.0-4.8); LYMPH % 8 % (24-48); MEAN CORPUSCULAR HEMOGLOBIN 28 pg (25-35); MEAN CORPUSCULAR HGB CONC 32 g/dL (31-37); MEAN CORPUSCULAR VOLUME 88 fL (79-100); MONO # 1.2 x10^3/uL (0.0-1.1); MONO % 7 % (0-9); NEUT # 15.7 x10^3uL (1.8-7.7); NEUT % 85 % (31-73); PLATELET COUNT 324 x10^3/uL (140-400); RED BLOOD COUNT 4.15 x10^6/uL (3.50-5.40); RED CELL DISTRIBUTION WIDTH 15.7 % (11.5-14.5); WHITE BLOOD COUNT 18.4 x10^3/uL (4.0-11.0)
[2018-02-10 07:50] LABS: ALBUMIN 2.2 g/dL (3.4-5.0); ALBUMIN/GLOBULIN RATIO 0.5 (1.0-1.7); CALCIUM 9.4 mg/dL (8.5-10.1); CREATININE 0.9 mg/dL (0.6-1.0); GFR 76.3; POTASSIUM 4.2 mmol/L (3.5-5.1); TOTAL BILIRUBIN 0.1 mg/dL (0.2-1.0); TOTAL PROTEIN 6.7 g/dL (6.4-8.2)
[2018-02-10] MEDS: methylPREDNISolone SOD SUCC PF 125 MG/2 ML VIAL. IV SCH (09:20)
[2018-02-10] MEDS: CITALOPRAM 10 MG TABLET. PO SCH (09:21)
[2018-02-10] MEDS: ENOXAPARIN ** NOTE DOSE ** SYRINGE SQ SCH ×2 (09:23→19:56)
[2018-02-10] MEDS: LACTOBACILLUS RHAMNOSUS GG 1 CAPSULE. PO SCH ×2 (09:24→19:56)
[2018-02-10] MEDS: ASPIRIN ENTERIC COATED 81 MG TABLET.DR. PO SCH (09:24)
[2018-02-10] MEDS: GABAPENTIN 300 MG CAPSULE. PO SCH ×3 (09:24→19:56)
[2018-02-10] MEDS: MULTIVITAMIN with MINERAL TABLET. PO SCH (09:24)
[2018-02-10] MEDS: CALCIUM POLYCARBOPHIL 625 MG TABLET PO SCH ×2 (09:24→19:56)
[2018-02-10] MEDS: DOCUSATE SODIUM 100 MG CAPSULE PO SCH (09:24)
[2018-02-10] MEDS: ATORVASTATIN CALCIUM 10 MG TABLET. PO SCH (09:25)
[2018-02-10] MEDS: amLODIPine BESYLATE 10 MG TABLET PO SCH (09:26)
[2018-02-10] MEDS: CYANOCOBALAMIN (VITAMIN B-12) 1,000 MCG TABLET. PO SCH (09:27)
[2018-02-10] MEDS: NYSTATIN TOPICAL POWDER 15GM BOTTLE. TP SCH ×2 (09:29→19:56)
[2018-02-10] MEDS: POLYETHYLENE GLYCOL 3350 17 GM PACKET. PO SCH (09:29)
[2018-02-10 10:19] VITALS: BP 178/89
[2018-02-10 12:29] VITALS: BP 133/75
--- NOTE | 2018-02-10 14:57 | PDOC ---
Progress Note. Subjective: THIS NOTE IS A DISCHARGE SUMMARY Date of admission 02/08/2018 Date of discharge 02/10/2018 Admitting diagnoses: 1. Mental status change 2. Respiratory Failure-hypoxia and hypercarbia 3. DM-[]173 4. UTI 5. Sepsis 6. Leukocytosis 20.4 7. Elevated Creat. 1.6 8. Malnutrition- Alb. 2.6 9. Anemia - 11.8 10. Hx. COPD 11. Hx. CADz 12. Hx of Depression 13. Morbid Obesity Patient is 62/F found to be febrile with decreased alertness at [facility] where she resides. EMS reports patient was hypoxic on arrival responding only to noxious stimuli. She has chronic respiratory failure with CHF, COPD, uses 2- 4 L O2 as baseline. She was brought to [facility] ED where her mentation improved quickly with respiratory support. In the ED her EKG revealed NSR [address] contour abnormalities. PCXR revealed cardiomegaly, and CT head without contrast revealed what looks like old right basal ganglia infarct. CTA chest was nondiagnostic for PE due to technical difficulty, did reveal small vessel/ airway disease no pneumonia. She was admitted for hydration, respiratory support, and vancomycin. LE dopplers negative for DVT. I find her very awake and talking with physical therapist lying in bed. She continues to complain of some myalgias, feels like her respiratory status has normalized and her candidal infection no longer itches or crystal. She's been afebrile, O2sat stable currently her home O2 per nasal cannula. Urine sensitivities obtained patient will be changed over to oral antibiotics and discharged home. Objective: Vital Signs: Vital Signs Date Time Temp Pulse Resp B/P (MAP) Pulse Ox O2 Delivery O2 Flow Rate FiO2 02/10/18 12:29 78 20 133/75 (94) 02/10/18 11:18 95 Nasal Cannula 3.5 02/09/18 20:20 98.7 I & O: Intake and Output 02/10/18 07:00 Intake Total 840 ml Output Total 4475 ml Balance -3635 ml Intake Oral 840 ml Output Urine Total 4475 ml Labs: Laboratory Tests Test 02/08/18 17:20 02/08/18 17:36 02/08/18 17:48 02/08/18 23:45 Blood Gas pH 7.40 (7.35-7.45) Blood Gas PCO2 58 mmHg (35-45) Blood Gas PO2 70 mmHg (80-100) Blood Gas HCO3 36 mmol/L (22-26) Arterial Bld O2 Saturation (Calc) 93 % (92-99) FiO2 32 % Glucose (Fingerstick) 175 mg/dL (70-99) Nasal Screen MRSA (PCR) Positive (Negative) White Blood Count 26.1 x10^3/uL (4.0-11.0) Red Blood Count 3.93 x10^6/uL (3.50-5.40) Hemoglobin 10.9 g/dL (12.0-15.5) Hematocrit 34.7 % (36.0-47.0) Mean Corpuscular Volume 88 fL (79-100) Mean Corpuscular Hemoglobin 28 pg (25-35) Mean Corpuscular Hemoglobin Concent 32 g/dL (31-37) Red Cell Distribution Width 15.3 % (11.5-14.5) Platelet Count 322 x10^3/uL (140-400) Neutrophils (%) (Auto) 91 % (31-73) Lymphocytes (%) (Auto) 4 % (24-48) Monocytes (%) (Auto) 5 % (0-9) Eosinophils (%) (Auto) 0 % (0-3) Basophils (%) (Auto) 1 % (0-3) Neutrophils # (Auto) 23.7 x10^3uL (1.8-7.7) Lymphocytes # (Auto) 1.0 x10^3/uL (1.0-4.8) Monocytes # (Auto) 1.3 x10^3/uL (0.0-1.1) Eosinophils # (Auto) 0.0 x10^3/uL (0.0-0.7) Basophils # (Auto) 0.1 x10^3/uL (0.0-0.2) Sodium Level 138 mmol/L (136-145) Potassium Level 4.3 mmol/L (3.5-5.1) Chloride Level 100 mmol/L (98-107) Carbon Dioxide Level 35 mmol/L (21-32) Anion Gap 3 (6-14) Blood Urea Nitrogen 13 mg/dL (7-20) Creatinine 1.1 mg/dL (0.6-1.0) Estimated GFR (Cockcroft-Gault) 60.5 BUN/Creatinine Ratio 12 (6-20) Glucose Level 149 mg/dL (70-99) Calcium Level 10.0 mg/dL (8.5-10.1) Total Bilirubin 0.2 mg/dL (0.2-1.0) Aspartate Amino Transf (AST/SGOT) 15 U/L (15-37) Alanine Aminotransferase (ALT/SGPT) 20 U/L (14-59) Alkaline Phosphatase 69 U/L (46-116) Total Protein 7.4 g/dL (6.4-8.2) Albumin 2.2 g/dL (3.4-5.0) Albumin/Globulin Ratio 0.4 (1.0-1.7) EGFR Other 74 (>59) EGFR 85 (>59) 25-Hydroxy Vitamin D Total 23.2 ng/mL (30-100) Parathyroid Hormone (Intact) 67 pg/mL (15-65) Calcium (PTH Intact) 9.4 mg/dL (8.7-10.3) Creatinine (PTH Intact) 0.84 mg/dL (0.57-1.00) Phosphorus (PTH Intact) 3.0 mg/dL (2.5-4.5) Test 02/09/18 06:00 02/09/18 06:56 02/09/18 12:37 02/09/18 12:38 White Blood Count 22.1 x10^3/uL (4.0-11.0) Red Blood Count 3.99 x10^6/uL (3.50-5.40) Hemoglobin 11.3 g/dL (12.0-15.5) Hematocrit 35.2 % (36.0-47.0) Mean Corpuscular Volume 88 fL (79-100) Mean Corpuscular Hemoglobin 28 pg (25-35) Mean Corpuscular Hemoglobin Concent 32 g/dL (31-37) Red Cell Distribution Width 15.3 % (11.5-14.5) Platelet Count 310 x10^3/uL (140-400) Neutrophils (%) (Auto) 87 % (31-73) Lymphocytes (%) (Auto) 6 % (24-48) Monocytes (%) (Auto) 7 % (0-9) Eosinophils (%) (Auto) 0 % (0-3) Basophils (%) (Auto) 0 % (0-3) Neutrophils # (Auto) 19.3 x10^3uL (1.8-7.7) Lymphocytes # (Auto) 1.3 x10^3/uL (1.0-4.8) Monocytes # (Auto) 1.4 x10^3/uL (0.0-1.1) Eosinophils # (Auto) 0.0 x10^3/uL (0.0-0.7) Basophils # (Auto) 0.0 x10^3/uL (0.0-0.2) Segmented Neutrophils % 78 % (35-66) Band Neutrophils % 5 % (0-9) Lymphocytes % 11 % (24-48) Monocytes % 5 % (0-10) Platelet Estimate Adequate (ADEQUATE) Sodium Level 140 mmol/L (136-145) Potassium Level 4.4 mmol/L (3.5-5.1) Chloride Level 100 mmol/L (98-107) Carbon Dioxide Level 36 mmol/L (21-32) Anion Gap 4 (6-14) Blood Urea Nitrogen 12 mg/dL (7-20) Creatinine 1.0 mg/dL (0.6-1.0) Estimated GFR (Cockcroft-Gault) 67.5 Glucose Level 141 mg/dL (70-99) Calcium Level 9.9 mg/dL (8.5-10.1) Glucose (Fingerstick) 149 mg/dL (70-99) 197 mg/dL (70-99) Blood Gas pH 7.42 (7.35-7.45) Blood Gas PCO2 58 mmHg (35-45) Blood Gas PO2 102 mmHg (80-100) Blood Gas HCO3 37 mmol/L (22-26) Arterial Bld O2 Saturation (Calc) 98 % (92-99) FiO2 36 % Test 02/09/18 20:53 02/10/18 07:10 02/10/18 08:00 Glucose (Fingerstick) 213 mg/dL (70-99) 149 mg/dL (70-99) White Blood Count 18.4 x10^3/uL (4.0-11.0) Red Blood Count 4.15 x10^6/uL (3.50-5.40) Hemoglobin 11.7 g/dL (12.0-15.5) Hematocrit 36.4 % (36.0-47.0) Mean Corpuscular Volume 88 fL (79-100) Mean Corpuscular Hemoglobin 28 pg (25-35) Mean Corpuscular Hemoglobin Concent 32 g/dL (31-37) Red Cell Distribution Width 15.7 % (11.5-14.5) Platelet Count 324 x10^3/uL (140-400) Neutrophils (%) (Auto) 85 % (31-73) Lymphocytes (%) (Auto) 8 % (24-48) Monocytes (%) (Auto) 7 % (0-9) Eosinophils (%) (Auto) 0 % (0-3) Basophils (%) (Auto) 1 % (0-3) Neutrophils # (Auto) 15.7 x10^3uL (1.8-7.7) Lymphocytes # (Auto) 1.4 x10^3/uL (1.0-4.8) Monocytes # (Auto) 1.2 x10^3/uL (0.0-1.1) Eosinophils # (Auto) 0.0 x10^3/uL (0.0-0.7) Basophils # (Auto) 0.1 x10^3/uL (0.0-0.2) Sodium Level 139 mmol/L (136-145) Potassium Level 4.2 mmol/L (3.5-5.1) Chloride Level 100 mmol/L (98-107) Carbon Dioxide Level 36 mmol/L (21-32) Anion Gap 3 (6-14) Blood Urea Nitrogen 14 mg/dL (7-20) Creatinine 0.9 mg/dL (0.6-1.0) Estimated GFR (Cockcroft-Gault) 76.3 BUN/Creatinine Ratio 16 (6-20) Glucose Level 161 mg/dL (70-99) Calcium Level 9.4 mg/dL (8.5-10.1) Total Bilirubin 0.1 mg/dL (0.2-1.0) Aspartate Amino Transf (AST/SGOT) 18 U/L (15-37) Alanine Aminotransferase (ALT/SGPT) 28 U/L (14-59) Alkaline Phosphatase 70 U/L (46-116) Total Protein 6.7 g/dL (6.4-8.2) Albumin 2.2 g/dL (3.4-5.0) Albumin/Globulin Ratio 0.5 (1.0-1.7) Physical Exam: General Appearance: morbidly obese, awake and alert HEENT: Atraumatic, PERRLA, EOMI, Mucous membr. moist/pink Respiratory: Faint wheezes bilaterally with good air movement Heart: Normal S1, Normal S2, No murmurs Cardiac: CAD, CHF, HTN, hyperipidemia Abdominal: Soft, No tenderness Extremities: Other (contractures left hand, 2+ pitting LE edema) Pelvic Exam: Examination not indicated Skin: No significant lesion candidal infection significantly improved with decreased redness Neuro: Alert and oriented 3 Assessment: Acute on Chronic Respiratory Failure: Resolved UTI: Oral antibiotics based on urine culture Sepsis: Resolved Altered Mental Status: Resolved DM KATHRYN: Resolved Severe Malnutrition Hypercalcemia: PTH mildly elevated, primary hyperparathyroidism versus secondary to vitamin D deficiency Cutaneous candidiasis Vitamin D deficiency ASHLEY RIVERA DO Feb 10, 2018 14:56
[2018-02-10 19:49] VITALS: BP 147/71
[2018-02-10 22:37] VITALS: BP 146/60
[2018-02-11 04:15] VITALS: BP 173/68
[2018-02-11] MEDS: cefTRIAXone IV Push 1 GM VIAL. IVP SCH (04:27)
[2018-02-11] MEDS: diphenhydrAMINE HCL 25 MG CAPSULE PO PRN (04:58)
[2018-02-11 06:04] LABS: BASO # 0.1 x10^3/uL (0.0-0.2); BASO % 0 % (0-3); EOS % 0 % (0-3); HEMATOCRIT 38.3 % (36.0-47.0); HEMOGLOBIN 12.5 g/dL (12.0-15.5); LYMPH # 2.4 x10^3/uL (1.0-4.8); LYMPH % 14 % (24-48); MEAN CORPUSCULAR HEMOGLOBIN 28 pg (25-35); MEAN CORPUSCULAR HGB CONC 33 g/dL (31-37); MEAN CORPUSCULAR VOLUME 87 fL (79-100); MONO # 1.1 x10^3/uL (0.0-1.1); MONO % 6 % (0-9); NEUT # 13.9 x10^3uL (1.8-7.7); NEUT % 79 % (31-73); PLATELET COUNT 428 x10^3/uL (140-400); RED BLOOD COUNT 4.41 x10^6/uL (3.50-5.40); RED CELL DISTRIBUTION WIDTH 15.1 % (11.5-14.5); WHITE BLOOD COUNT 17.6 x10^3/uL (4.0-11.0)
[2018-02-11 06:13] LABS: CALCIUM 10.2 mg/dL (8.5-10.1); CREATININE 0.9 mg/dL (0.6-1.0); GFR 76.3; POTASSIUM 4.3 mmol/L (3.5-5.1)
[2018-02-11 06:34] LABS: VANC TR 12.6 mcg/mL (10.0-20.0)
[2018-02-11] MEDS: CITALOPRAM 10 MG TABLET. PO SCH (08:14)
[2018-02-11] MEDS: ASPIRIN ENTERIC COATED 81 MG TABLET.DR. PO SCH (08:14)
[2018-02-11] MEDS: amLODIPine BESYLATE 10 MG TABLET PO SCH (08:14)
[2018-02-11] MEDS: CALCIUM POLYCARBOPHIL 625 MG TABLET PO SCH (08:14)
[2018-02-11] MEDS: ATORVASTATIN CALCIUM 10 MG TABLET. PO SCH (08:14)
[2018-02-11] MEDS: MULTIVITAMIN with MINERAL TABLET. PO SCH (08:15)
[2018-02-11] MEDS: POLYETHYLENE GLYCOL 3350 17 GM PACKET. PO SCH (08:15)
[2018-02-11] MEDS: methylPREDNISolone SOD SUCC PF 125 MG/2 ML VIAL. IV SCH (08:15)
[2018-02-11] MEDS: CYANOCOBALAMIN (VITAMIN B-12) 1,000 MCG TABLET. PO SCH (08:15)
[2018-02-11] MEDS: LACTOBACILLUS RHAMNOSUS GG 1 CAPSULE. PO SCH (08:15)
[2018-02-11] MEDS: GABAPENTIN 300 MG CAPSULE. PO SCH (08:20)
[2018-02-11] MEDS: DOCUSATE SODIUM 100 MG CAPSULE PO SCH (08:20)
[2018-02-11] MEDS ORDERED: CEFP100T PO (08:21)
[2018-02-11] MEDS ORDERED: IPRA3AMP29 NEB (08:21)
[2018-02-11] MEDS: ENOXAPARIN ** NOTE DOSE ** SYRINGE SQ SCH (08:21)
[2018-02-11] MEDS ORDERED: METH4TAB2 PO (08:21)
[2018-02-11] MEDS: NYSTATIN TOPICAL POWDER 15GM BOTTLE. TP SCH (08:24)
[2018-02-11] MEDS ORDERED: CEFPODOXIME PROXETIL 100 MG TABLET PO SCH (09:00)
[2018-02-11] MEDS: IPRATRPIUM/ALBUTEROL 0.5/2.5MG 3 ML NEBU. NEB SCH ×2 (10:20→10:21)
[2018-02-11 12:07] VITALS: BP 115/75
[2018-02-16] MEDS ORDERED: CHOLECALCIFEROL (VITAMIN D3) 50,000 UNIT CAPSULE PO SCH (09:00)
== END 2018-02-11 14:22 | DRG 871 ==
LOC: ER 02:19 → ICU 04:00 → 1 SOUTH 02-11 06:00
PROVIDERS: ADMIT Internal Medicine; ATTEND Internal Medicine
PROC: 5A09457 Assistance with Respiratory Ventilation, 24-96 Consecutive Hours, Continuous Positive Airway Pressure (ICD-10-PCS; principal; 2018-02-08)
DX: A41.9 Sepsis, unspecified organism (principal); E43 Unspecified severe protein-calorie malnutrition; J96.21 Acute and chronic respiratory failure with hypoxia; J96.22 Acute and chronic respiratory failure with hypercapnia; Z68.43 Body mass index [BMI] 50.0-59.9, adult; N39.0 Urinary tract infection, site not specified; N17.9 Acute kidney failure, unspecified; F32.9 Major depressive disorder, single episode, unspecified; M19.90 Unspecified osteoarthritis, unspecified site; B37.2 Candidiasis of skin and nail; E66.01 Morbid (severe) obesity due to excess calories; D64.9 Anemia, unspecified; J44.9 Chronic obstructive pulmonary disease, unspecified; E11.9 Type 2 diabetes mellitus without complications; I50.9 Heart failure, unspecified; I11.0 Hypertensive heart disease with heart failure; E83.52 Hypercalcemia; E78.5 Hyperlipidemia, unspecified; F03.90 Unspecified dementia, unspecified severity, without behavioral disturbance, psychotic disturbance, mood disturbance, and anxiety; K21.9 Gastro-esophageal reflux disease without esophagitis; I25.10 Atherosclerotic heart disease of native coronary artery without angina pectoris; G47.33 Obstructive sleep apnea (adult) (pediatric); Z99.81 Dependence on supplemental oxygen; Z88.0 Allergy status to penicillin; Z91.018 Allergy to other foods; Z86.73 Personal history of transient ischemic attack (TIA), and cerebral infarction without residual deficits; Z79.899 Other long term (current) drug therapy; Z23 Encounter for immunization
CPT/HCPCS: 36415; 36600; 51702; 70450; 71045; 71275; 80048; 80053; 80076; 80202; 80307; 81001; 82306; 82550; 82803; 82947; 83605; 83690; 83735; 83880; 83970; 84443; 84484; 85007; 85025; 85379; 85610; 85730; 87040; 87086; 87186; 87641; 90471; 90756; 93005; 93970; 94640; 94660; 96365; 96372; 96375; 99292; J0696; J1650; J2405; J2930; J3370; J7040; J7050; J7620; Q0162; Q0163; Q9967; 99291-25; G0479; J7030; Q2035

== ENCOUNTER 2019-03-31 12:57 | Emergency (ER) | payer MEDICARE, OTHER ==
[~2019-03-31] VITALS: Ht 162.6 cm; Wt 117.9 kg
[~2019-03-31 12:57] MED LIST changes: +ALPR0.25 PO; +AMLO10TA8 PO; +ASPI-612 PO; +ATOR10TA PO; +BENZ1LOZ48 MM; -BISA10SU2 RC; +BISA10SU4 RC; +CEFP100T PO; +CITA10TA8 PO; +CYAN-25 PO; -CYAN10005 PO; +DIPH25CA58 PO; +FAMO20TA5 PO; +GUAI118L59 PO; +GUAI600T47 PO; +IPRA3AMP29 NEB; +METH4TAB2 PO; +MINE473L5 TP; +OXYB5TAB10 PO; -OXYC20TA34 PO; +OXYC20TA35 PO; +SIME80TA14 PO; +TRAM50TA PO
[2019-03-31] MEDS ORDERED: IV NORMAL SALINE 1,000ML 1,000 ML IV SCH (13:07)
--- NOTE | 2019-03-31 13:11 | PHYS DOC ---
Past History Past Medical History: Bronchitis, CAD, CHF, COPD, Dementia, Depression, Diabetes, Stroke, UTI, Other Past Surgical History: No Surgical History Alcohol Use: None Drug Use: Opiates Adult General Chief Complaint Chief Complaint: ALTERED MENTAL STATUS HPI HPI Patient is a 63-year-old female sent in from the assisted care facility where she resides due to altered mental status. EMS found her awake and alert. They also found that she had an increased oxygen requirement beyond her usual 2 L. History is limited from the patient due to the altered mental status, she reports that she has chest pain for 30 minutes. She is unable to state what makes it better or worse, if there is any radiation, cough or fever[] Review of Systems Review of Systems Unable to obtain due to altered mental status All other systems were reviewed and found to be within normal limits, except as documented in this note. Allergies Allergies Allergies Coded Allergies Type Severity Reaction Last Updated Verified Penicillins Allergy Severe 02/08/18 Yes I S O L A T I O N *CONTACT* Allergy Unknown 02/08/18 Yes coconut Allergy Unknown 02/08/18 Yes Physical Exam Physical Exam Constitutional: Well developed, well nourished, no acute distress, non-toxic appearance. [] HENT: Normocephalic, atraumatic, bilateral external ears normal, oropharynx moist, no oral exudates, nose normal. [] Eyes: PERRLA, EOMI, conjunctiva normal, no discharge. [] Neck: Normal range of motion, no tenderness, supple, no stridor. [] Cardiovascular:Heart rate regular rhythm, no murmur [] Lungs & Thorax: Bilateral breath sounds clear to auscultation [] Abdomen: Bowel sounds normal, soft, no tenderness, no masses, no pulsatile masses. [] Skin: Warm, dry, no erythema, no rash. [] Back: No tenderness, no CVA tenderness. [] Extremities: No tenderness, no cyanosis, no clubbing, ROM intact, no edema. [] Neurologic: Alert and oriented X 3, normal motor function, normal sensory function, no focal deficits noted. [] Psychologic: Affect normal, judgement normal, mood normal. [] EKG EKG EKG shows a normal sinus rhythm at 82 bpm, no ST elevation. Normal axis, QTC of 414 ms, interpreted by me at 1314[] Radiology/Procedures Radiology/Procedures PROCEDURE: PORTABLE CHEST 1V Examination: PORTABLE CHEST 1V History: Chest pain Comparison/Correlation: 02/08/2018 portable chest x-ray exam Findings: Upright frontal view of the chest was obtained. Mediastinum is unremarkable with no significant change. Pulmonary vasculature is suggested but this may be artifactual due to limited pulmonary inflation. Calcified right perihilar masses are unchanged. No pneumothorax or infiltrate although evaluation of the retrocardiac region is limited due to underpenetrated technique. Impression: No new process ROCEDURE: CT HEAD WO CONTRAST Examination: CT HEAD WO CONTRAST History: Altered mental status Comparison/Correlation: 02/08/2018 CT head without contrast Findings: Ventricles are normal size. No intracranial hemorrhage, midline shift, or mass effect. Bony structures are unremarkable. Impression: No suspicious process. [] Course & Med Decision Making Course & Med Decision Making Pertinent Labs and Imaging studies reviewed. (See chart for details) ED course: Patient arrived, was placed in bed, and tolerated exam well. A peripheral IV was established due to lack of more proximal points. She was transferred to and from imaging without any complications. After return lab and imaging studies, she was placed on BiPAP along with a DuoNeb which did improve her mental status. She was given steroids. Her elevated d-dimer was noted and she was started on Lovenox. She was not a good candidate for V/Q due to body habitus and the size of the machine. Discussion was made with her primary care physician for admission and he graciously accepted for transfer over at given their greater resources and pulmonary expertise available. She was transported in improved condition. Medical decision making: Patient with significant hypercapnia, may be a combination of underlying lung disease as well as medication she is on. There is no evidence of an acute stroke syndrome. There may be a pulmonary embolism given her greater than expected d-dimer even with age adjustment. However, patient is not a candidate for CTA due to lack of proximal IV access, nor a good candidate for VQ scan given body habitus. She has white cells in her urine but she has an indwelling suprapubic catheter so believe this due to the catheter rather than a urinary tract infection. [] Dragon Disclaimer Dragon Disclaimer This electronic medical record was generated, in whole or in part, using a voice recognition dictation system. Departure Departure: Impression: Primary Impression: Acute and chronic respiratory failure with hypercapnia Additional Impression: Mental status change Disposition: 05 TRANSFER OTHER Admitting Physician: Jeremias Ash Condition: IMPROVED Referrals: JEREMIAS ASH MD (PCP) Problem Qualifiers RICARDO MOSQUEDA DO Mar 31, 2019 13:11
--- NOTE | 2019-03-31 13:17 | EKG ---
[address] [address] Test Date: 2019-03-31 Test Time: 13:13:27 Pat Name: TROY SANTIZO Department: Room: Gender: F Network Systems Administrator: MARILEE : [id number] Requested By: RICARDO MOSQUEDA Order Number: [id number] Reading MD: Measurements Intervals [place] Rate: 82 P: 52 MN: 126 QRS: 12 QRSD: 98 T: 26 QT: 352 QTc: 414 Interpretive Statements SINUS RHYTHM NORMAL ECG RI6.01 Compared to ECG 02/08/2018 03:09:15 No significant changes
[2019-03-31 13:35] LABS: BASO # 0.1 x10^3/uL (0.0-0.2); BASO % 1 % (0-3); EOS # 0.2 x10^3/uL (0.0-0.7); EOS % 2 % (0-3); LYMPH # 2.3 x10^3/uL (1.0-4.8); LYMPH % 27 % (24-48); MEAN CORPUSCULAR HEMOGLOBIN 27 pg (25-35); MEAN CORPUSCULAR HGB CONC 32 g/dL (31-37); MEAN CORPUSCULAR VOLUME 86 fL (79-100); MONO # 0.4 x10^3/uL (0.0-1.1); MONO % 5 % (0-9); NEUT # 5.7 x10^3uL (1.8-7.7); NEUT % 65 % (31-73); PLATELET COUNT 306 x10^3/uL (140-400); RED BLOOD COUNT 4.42 x10^6/uL (3.50-5.40); RED CELL DISTRIBUTION WIDTH 17.4 % (11.5-14.5); WHITE BLOOD COUNT 8.8 x10^3/uL (4.0-11.0)
--- NOTE | 2019-03-31 13:43 | RAD ---
Examination: CT HEAD WO CONTRAST History: Altered mental status Comparison/Correlation: 02/08/2018 CT head without contrast Findings: Ventricles are normal size. No intracranial hemorrhage, midline shift, or mass effect. Bony structures are unremarkable. Impression: No suspicious process. PQRS Compliance Statement: One or more of the following individualized dose reduction techniques were utilized for this examination: 1. Automated exposure control 2. Adjustment of the mA and/or kV according to patient size 3. Use of iterative reconstruction technique Electronically signed by: Jamal Longo MD (03/31/2019 1:40 PM) [facility]
[2019-03-31] MEDS ORDERED: IPRATRPIUM/ALBUTEROL 0.5/2.5MG 3 ML NEBU. NEB ONE (13:45)
--- NOTE | 2019-03-31 13:45 | RAD ---
Examination: PORTABLE CHEST 1V History: Chest pain Comparison/Correlation: 02/08/2018 portable chest x-ray exam Findings: Upright frontal view of the chest was obtained. Mediastinum is unremarkable with no significant change. Pulmonary vasculature is suggested but this may be artifactual due to limited pulmonary inflation. Calcified right perihilar masses are unchanged. No pneumothorax or infiltrate although evaluation of the retrocardiac region is limited due to underpenetrated technique. Impression: No new process Electronically signed by: Jamal Longo MD (03/31/2019 1:42 PM) [facility]
[2019-03-31 14:00] LABS: ALBUMIN 2.7 g/dL (3.4-5.0); ALBUMIN/GLOBULIN RATIO 0.7 (1.0-1.7); CALCIUM 9.5 mg/dL (8.5-10.1); CREATININE 0.7 mg/dL (0.6-1.0); GFR 101.6; MAGNESIUM 1.9 mg/dL (1.8-2.4); POTASSIUM 4.6 mmol/L (3.5-5.1); TOTAL BILIRUBIN 0.1 mg/dL (0.2-1.0); TOTAL PROTEIN 6.8 g/dL (6.4-8.2)
[2019-03-31 14:22] LABS: BGAS PH 7.21 (7.35-7.45)
[2019-03-31] MEDS ORDERED: ENOXAPARIN ** NOTE DOSE ** SYRINGE SQ ONE ×2 (14:32→14:45)
[2019-03-31 14:40] LABS: AMORPHOUS SEDIMENT,UR PRESENT /HPF; BACTERIA,URINE MANY /HPF (0-FEW); BILIRUBIN,URINE NEG (NEG); CLARITY,URINE TURBID; COLOR,URINE STRAW; GLUCOSE,URINE NEG (NEG); NITRITE,URINE NEG (NEG); SQUAMOUS EPITHELIAL CELL,UR OCC /LPF; UROBILINOGEN,URINE 0.2 mg/dL (0.2 mg/dL); WBC,URINE 20-40 /HPF (0-4)
[2019-03-31 14:43] VITALS: BP 113/64
[2019-03-31] MEDS ORDERED: methylPREDNISolone SOD SUCC PF 125 MG/2 ML VIAL. IV ONE (14:45)
[2019-03-31 15:55] LABS: BGAS PH 7.24 (7.35-7.45)
== END 2019-03-31 16:05 | disposition short-term general hospital (02) ==
LOC: ER 12:57
DX: J96.22 Acute and chronic respiratory failure with hypercapnia (principal); R41.82 Altered mental status, unspecified; I25.10 Atherosclerotic heart disease of native coronary artery without angina pectoris; I50.9 Heart failure, unspecified; J44.9 Chronic obstructive pulmonary disease, unspecified; F03.90 Unspecified dementia, unspecified severity, without behavioral disturbance, psychotic disturbance, mood disturbance, and anxiety; F32.9 Major depressive disorder, single episode, unspecified; E11.9 Type 2 diabetes mellitus without complications; Z86.73 Personal history of transient ischemic attack (TIA), and cerebral infarction without residual deficits; Z87.440 Personal history of urinary (tract) infections; Z88.0 Allergy status to penicillin; Z91.041 Radiographic dye allergy status; Z91.018 Allergy to other foods
CPT/HCPCS: 36415; 36600; 70450; 71045; 80053; 81001; 82553; 82803; 82947; 83690; 83735; 83880; 84484; 85025; 85379; 85610; 85730; 87086; 93005; 94640; 94660; 96372; 96374; 99285; J1650; J2930; J7620; 96361; J7030

== ENCOUNTER 2019-10-01 | Inpatient (IN) | payer OTHER ==
[~2019-10-01] VITALS: Ht 162.6 cm; Wt 123.1 kg
[2019-10-01] VITALS (12 sets, daily range): BP systolic 103–146; BP diastolic 58–84
[~2019-10-01] MED LIST changes: -MAGN2400 PO; +MAGN24003 PO; +MULT-445 PO; -MULT1TAB52 PO; -OLOP2.5D OP; +OLOP2.5D12 OP; +ONDA-84 PO; -ONDA4TAB11 PO; -OXYM30SP NS; +OXYM30SP25 NS
[2019-10-01] MEDS ORDERED: IV NORMAL SALINE 500ML 500 ML IV ONE (00:15)
[2019-10-01] MEDS ORDERED: ACETAMINOPHEN 325 MG TABLET PO ONE (00:30)
[2019-10-01 01:04] LABS: CALCIUM 10.4 mg/dL (8.5-10.1); CREATININE 0.5 mg/dL (0.6-1.0); GFR 149.8; POTASSIUM 5.7 mmol/L (3.5-5.1)
[2019-10-01 01:07] LABS: BASO # 0.1 x10^3/uL (0.0-0.2); BASO % 1 % (0-3); EOS % 0 % (0-3); HEMATOCRIT 35.8 % (36.0-47.0); HEMOGLOBIN 11.2 g/dL (12.0-15.5); LYMPH # 1.4 x10^3/uL (1.0-4.8); LYMPH % 12 % (24-48); MEAN CORPUSCULAR HEMOGLOBIN 27 pg (25-35); MEAN CORPUSCULAR HGB CONC 31 g/dL (31-37); MEAN CORPUSCULAR VOLUME 87 fL (79-100); MONO # 0.5 x10^3/uL (0.0-1.1); MONO % 4 % (0-9); NEUT # 9.5 x10^3uL (1.8-7.7); NEUT % 83 % (31-73); PLATELET COUNT 255 x10^3/uL (140-400); RED BLOOD COUNT 4.11 x10^6/uL (3.50-5.40); RED CELL DISTRIBUTION WIDTH 16.5 % (11.5-14.5); WHITE BLOOD COUNT 11.4 x10^3/uL (4.0-11.0)
[2019-10-01 01:10] LABS: ALBUMIN 2.5 g/dL (3.4-5.0); ALBUMIN/GLOBULIN RATIO 0.5 (1.0-1.7); TOTAL BILIRUBIN 0.3 mg/dL (0.2-1.0); TOTAL PROTEIN 7.9 g/dL (6.4-8.2)
[2019-10-01 01:20] LABS: CLARITY,URINE CLOUDY; COLOR,URINE YELLOW; GLUCOSE,URINE NEG (NEG)
[2019-10-01 01:21] LABS: BACTERIA,URINE MOD /HPF (0-FEW); BILIRUBIN,URINE NEG (NEG); NITRITE,URINE POS (NEG); SQUAMOUS EPITHELIAL CELL,UR FEW /LPF; UROBILINOGEN,URINE 0.2 mg/dL (0.2 mg/dL)
[2019-10-01 01:22] LABS: AMORPHOUS SEDIMENT,UR PRESENT /HPF
--- NOTE | 2019-10-01 01:40 | PHYS DOC ---
Past History Past Medical History: Anxiety, CAD, COPD, Depression, GERD, Hypertension, Stroke Past Surgical History: No Surgical History Alcohol Use: None Drug Use: None General Adult EDM: Chief Complaint: ALTERED MENTAL STATUS HPI: HPI: 63-year-old female presents via EMS with altered mental status. She has had altered mental status most of the day at her care facility. She does live in a snf. She had a severe stroke that left her entire left side paralyzed in the past. She has contractures. This entire history is gleaned from EMS and the nursing facility. The patient is only alert to her name. She is not able to answer any other questions. She is normally alert and oriented x4. She did not have a fever at the care facility but EMS had a fever of 100.4. She had not have a fever on arrival in the emergency room. Patient does have a suprapubic catheter. She has had urinary tract infections in the past. No known COVID-19 exposures. Review of Systems: Review of Systems: Unable to complete due to altered mental status. Heart Score: Risk Factors: Risk Factors: DM, Current or recent (<one month) smoker, HTN, HLP, family hist ory of CAD, obesity. Risk Scores: Score 0 - 3: 2.5% MACE over next 6 weeks - Discharge Home Score 4 - 6: 20.3% MACE over next 6 weeks - Admit for Clinical Observation Score 7 - 10: 72.7% MACE over next 6 weeks - Early Invasive Strategies Current Medications: Current Meds: Current Medications Medications (Trade) Dose Ordered Sig/[facility] Start Time Stop Time Status Last Admin Dose Admin Acetaminophen (Tylenol) 650 mg 1X ONCE 10/01/19 00:30 10/01/19 00:43 DC 10/01/19 00:30 650 MG Sodium Chloride 500 ml @ 0 mls/hr 1X ONCE 10/01/19 00:15 10/01/19 00:43 DC 10/01/19 00:15 999 MLS/HR Allergies: Allergies: Allergies Coded Allergies Type Severity Reaction Last Updated Verified Penicillins Allergy Severe 02/08/18 Yes I S O L A T I O N *CONTACT* Allergy Unknown 02/08/18 Yes coconut Allergy Unknown 02/08/18 Yes Physical Exam: PE: Constitutional: Well developed, morbidly obese, well nourished, moderate acute distress, non-toxic appearance. [] HENT: Normocephalic, atraumatic, bilateral external ears normal, oropharynx moist, no oral exudates, nose normal. [] Eyes: PERRLA, EOMI, conjunctiva normal, no discharge. [] Neck: , no tenderness, supple, no stridor. [] Cardiovascular: Heart rate 110, regular rhythm [] Lungs & Thorax: Unable to obtain due to isolation precautions [] Abdomen: Suprapubic catheter. Bowel sounds normal, soft, no tenderness, no masses, no pulsatile masses. [] Skin: Warm, dry, no erythema, no rash. [] Back: No tenderness, no CVA tenderness. [] Extremities: No tenderness. Contractures of the left upper lower extremity. [] Neurologic: Unarousable to verbal and physical stimuli, paralyzed left side at baseline. [] Psychologic: Affect normal, judgement normal, mood normal. [] Current Patient Data: Labs: Laboratory Tests Test 10/01/19 00:30 10/01/19 00:35 White Blood Count 11.4 x10^3/uL (4.0-11.0) H Red Blood Count 4.11 x10^6/uL (3.50-5.40) Hemoglobin 11.2 g/dL (12.0-15.5) L Hematocrit 35.8 % (36.0-47.0) L Mean Corpuscular Volume 87 fL (79-100) Mean Corpuscular Hemoglobin 27 pg (25-35) Mean Corpuscular Hemoglobin Concent 31 g/dL (31-37) Red Cell Distribution Width 16.5 % (11.5-14.5) H Platelet Count 255 x10^3/uL (140-400) Neutrophils (%) (Auto) 83 % (31-73) H Lymphocytes (%) (Auto) 12 % (24-48) L Monocytes (%) (Auto) 4 % (0-9) Eosinophils (%) (Auto) 0 % (0-3) Basophils (%) (Auto) 1 % (0-3) Neutrophils # (Auto) 9.5 x10^3uL (1.8-7.7) H Lymphocytes # (Auto) 1.4 x10^3/uL (1.0-4.8) Monocytes # (Auto) 0.5 x10^3/uL (0.0-1.1) Eosinophils # (Auto) 0.0 x10^3/uL (0.0-0.7) Basophils # (Auto) 0.1 x10^3/uL (0.0-0.2) Sodium Level 143 mmol/L (136-145) Potassium Level 5.7 mmol/L (3.5-5.1) H Chloride Level 103 mmol/L (98-107) Carbon Dioxide Level 44 mmol/L (21-32) H Anion Gap -4 (6-14) L Blood Urea Nitrogen 12 mg/dL (7-20) Creatinine 0.5 mg/dL (0.6-1.0) L Estimated GFR (Cockcroft-Gault) 149.8 BUN/Creatinine Ratio 24 (6-20) H Glucose Level 148 mg/dL (70-99) H Lactic Acid Level 1.2 mmol/L (0.4-2.0) Calcium Level 10.4 mg/dL (8.5-10.1) H Total Bilirubin 0.3 mg/dL (0.2-1.0) Aspartate Amino Transferase (AST) 34 U/L (15-37) Alanine Aminotransferase (ALT) 19 U/L (14-59) Alkaline Phosphatase 77 U/L (46-116) Troponin I Quantitative 0.023 ng/mL (0-0.055) Total Protein 7.9 g/dL (6.4-8.2) Albumin 2.5 g/dL (3.4-5.0) L Albumin/Globulin Ratio 0.5 (1.0-1.7) L Urine Collection Type Void Urine Color Yellow Urine Clarity Cloudy Urine pH 7.5 Urine Specific [place] 1.020 Urine Protein Trace (NEG-TRACE) Urine Glucose (UA) Neg mg/dL (NEG) Urine Ketones (Stick) Neg mg/dL (NEG) Urine Blood Small (NEG) Urine Nitrite Pos (NEG) Urine Bilirubin Neg (NEG) Urine Urobilinogen Dipstick 0.2 mg/dL (0.2 mg/dL) Urine Leukocyte Esterase Mod (NEG) Urine RBC 6-10 /HPF (0-2) Urine WBC 11-20 /HPF (0-4) Urine Squamous Epithelial Cells Few /LPF Urine Transitional Epithelial Cells Occ /LPF Urine Renal Epithelial Cells Occ /LPF Urine Calcium Phosphate Crystals Present /HPF Urine Amorphous Sediment Present /HPF Urine Bacteria Mod /HPF (0-FEW) Urine Mucus Mod /LPF Vital Signs: Vital Signs Date Time Temp Pulse Resp B/P (MAP) Pulse Ox O2 Delivery O2 Flow Rate FiO2 10/01/19 00:42 99.9 113 20 156/82 (106) 97 Nasal Cannula 3.0 EKG: EKG: Sinus tachycardia, rate 107, normal axis, no ST elevations or depressions. [] Radiology/Procedures: Radiology/Procedures: [] Impressions: CHEST AP ONLY Clinical History: Change mental status Technique: AP view of the chest was obtained at 10/01/2019 12:10 AM. Comparison: March 31, 2019. Findings: The heart is normal size. The pulmonary vessels appear normal. There is multiple large calcified granuloma in the right hilum and mediastinum. There is a mild patchy perihilar linear opacities. Impression: Mild bilateral infiltrates likely discoid atelectasis. Electronically signed by: Brody Velez III, MD (10/01/2019 1:39 AM) [id number] DICTATED AND SIGNED BY: BRODY VELEZ III, MD DATE: 10/01/19 0139 CC: JW MERIDA DO; ZOE ASH MD ~ CT Head W/O Contrast: History: Change in mental status Comparison: March 31, 2019 Axial images were obtained without contrast. The hannah and white matter appears normal and symmetrical for the patients age. There is no mass effect, extraaxial fluid collections or hydrocephalus. There is no gross bleed. There is no focal loss of hannah-white matter distinction to suggest acute ischemia, i.e. stroke. Impression: No acute findings. PQRS Compliance Statement: One or more of the following individualized dose reduction techniques were utilized for this examination: 1. Automated exposure control 2. Adjustment of the mA and/or kV according to patient size 3. Use of iterative reconstruction technique Electronically signed by: Brody Velez III, MD (10/01/2019 3:21 AM) [email or web address] DICTATED AND SIGNED BY: BRODY VELEZ III, MD DATE: 10/01/19 0321 CC: JW MERIDA DO; ZOE ASH MD ~ CT chest with contrast: History: Bilateral infiltrates and acute mental status change Axial helical images of the chest were obtained after the administration of 75 cc of Omni 300 IV contrast. Comparison: none Findings: There is large calcified granuloma in the mediastinum. There is mild patchy perihilar and right basal opacities. The lungs and pleural margins are clear. The thoracic aorta appears normal. There is no hilar lymphadenopathy. Impression: Mild bilateral infiltrates right worse than left likely discoid atelectasis. End Impression PQRS Compliance Statement: One or more of the following individualized dose reduction techniques were utilized for this examination: 1. Automated exposure control 2. Adjustment of the mA and/or kV according to patient size 3. Use of iterative reconstruction technique Electronically signed by: Brody Velez III, MD (10/01/2019 3:24 AM) [email or web address] DICTATED AND SIGNED BY: BRODY VELEZ III, MD DATE: 10/01/19323 CC: JW MERIDA DO; ZOE ASH MD ~ Course & Med Decision Making: Course & Med Decision Making Pertinent Labs and Imaging studies reviewed. (See chart for details) The patient's urinalysis is significant for infection. She is allergic to penicillin so we will treat her with levofloxacin IV. Her potassium is elevated at 5.7. I have given her a gram of calcium gluconate IV. She has other unusual labs. See labs for more details. The patient clinically appears to have urosepsis however she does not have a fever. She does have an elevated white count and tachycardia and likely source of UTI. We have given her 30 mL/kg of ideal body weight as her BMI is 45. She has been given antibiotics. The patient's chest x-ray is also suggestive of bilateral infiltrates according to official read. See read for more details. I have ordered a head CT and CT of the chest which are pending. Head CT is negative for acute findings. Her CT of the chest also shows similar findings of the x-ray. See official read for more details. This appears most likely to be urosepsis. I will admit the patient to the hospital for further management. I spoke with Dr. Dolan and he has accepted the patient for admission. 62 minutes of critical care time was spent on this patient exclusive of other billable procedures. [] Dragon Disclaimer: [place] Disclaimer: This electronic medical record was generated, in whole or in part, using a voice recognition dictation system. Departure Departure: Impression: Primary Impression: Urinary tract infection Qualified Codes: N30.01 - Acute cystitis with hematuria Additional Impressions: Hyperkalemia Sepsis Qualified Codes: A41.9 - Sepsis, unspecified organism; R65.20 - Severe sepsis without septic shock; G93.40 - Encephalopathy, unspecified Disposition: 09 ADMITTED INPATIENT Admitting Physician: Anthony Dolan Condition: GUARDED Referrals: ZOE ASH MD (PCP) Sepsis Assessment: Date and Time of Assessment Date: October 01, 2019 Time: 01:30 Vital Signs Vital Signs Vital Signs Date Time Temp Pulse Resp B/P (MAP) Pulse Ox O2 Delivery O2 Flow Rate FiO2 10/01/19 00:42 99.9 113 20 156/82 (106) 97 Nasal Cannula 3.0 Respirations Respiratory Effort: Normal Respiratory Pattern: Normal Cardiovascular Pulse Rhythm: Regular HEART: No murmurs noted Lung Sounds Breath Sounds: Clear Capillary Refill Capillary Refill: Rt Hand < 3 seconds Peripheral Pulse Pulse Location: Monitor Pulse Strength: Normal (2+) Pulse Assessment Method: Monitor Integumentary Skin: Warm Skin Moisture: Dry Skin Turgor: Normal Skin Color: no erythema Fingernail Color: WNL Sepsis Assessment: Date and Time of Assessment Date: October 01, 2019 Time: 03:42 Vital Signs Vital Signs Vital Signs Date Time Temp Pulse Resp B/P (MAP) Pulse Ox O2 Delivery O2 Flow Rate FiO2 10/01/19 00:42 99.9 113 20 156/82 (106) 97 Nasal Cannula 3.0 Respirations Respiratory Effort: Normal Respiratory Pattern: Normal Cardiovascular Pulse Rhythm: Regular HEART: No murmurs noted Lung Sounds Breath Sounds: Clear Capillary Refill Capillary Refill: Rt Hand < 3 seconds Peripheral Pulse Pulse Location: Monitor Pulse Strength: Normal (2+) Pulse Assessment Method: Monitor Integumentary Skin: Warm Skin Moisture: Dry Skin Turgor: Normal Skin Color: no erythema Fingernail Color: WNL JW MERIDA DO October 01, 2019 01:40
[2019-10-01] MEDS ORDERED: CALCIUM GLUCONATE 1,000 MG/10 ML VIAL IV ONE (02:00)
[2019-10-01] MEDS ORDERED: IOHEXOL 300 MG/ML 75 ML VIAL. ONE (02:25)
[2019-10-01] MEDS: IV NORMAL SALINE 1,000ML 1,000 ML IV SCH (03:07)
--- NOTE | 2019-10-01 03:24 | RAD ---
CT Head W/O Contrast: History: Change in mental status Comparison: March 31, 2019 Axial images were obtained without contrast. The hannah and white matter appears normal and symmetrical for the patients age. There is no mass effect, extraaxial fluid collections or hydrocephalus. There is no gross bleed. There is no focal loss of hannah-white matter distinction to suggest acute ischemia, i.e. stroke. Impression: No acute findings. RS Compliance Statement: One or more of the following individualized dose reduction techniques were utilized for this examination: 1. Automated exposure control 2. Adjustment of the mA and/or kV according to patient size 3. Use of iterative reconstruction technique Electronically signed by: Mathieu Palacios III, MD (10/01/2019 3:21 AM) [email or web address]
--- NOTE | 2019-10-01 03:27 | RAD ---
CT chest with contrast: History: Bilateral infiltrates and acute mental status change Axial helical images of the chest were obtained after the administration of 75 cc of Omni 300 IV contrast. Comparison: none Findings: There is large calcified granuloma in the mediastinum. There is mild patchy perihilar and right basal opacities. The lungs and pleural margins are clear. The thoracic aorta appears normal. There is no hilar lymphadenopathy. Impression: Mild bilateral infiltrates right worse than left likely discoid atelectasis. End Impression PQRS Compliance Statement: One or more of the following individualized dose reduction techniques were utilized for this examination: 1. Automated exposure control 2. Adjustment of the mA and/or kV according to patient size 3. Use of iterative reconstruction technique Electronically signed by: Mathieu Palacios III, MD (10/01/2019 3:24 AM) [id number]
[2019-10-01] MEDS ORDERED: IOHEXOL 300 MG/ML 75 ML VIAL. IV ONE (03:30)
[2019-10-01] MEDS ORDERED: CONTRAST GIVEN MC PRN (03:45)
[2019-10-01] MEDS ORDERED: ONDANSETRON PF 4 MG/2 ML VIAL. IVP PRN (03:45)
[2019-10-01] MEDS ORDERED: HYDR-2155 PO (05:58)
[2019-10-01] MEDS ORDERED: TAMS0.4C97 PO (05:58)
[2019-10-01] MEDS ORDERED: BENZ9.352 MM (05:58)
[2019-10-01] MEDS ORDERED: HYDR-2868 PO (05:58)
[2019-10-01] MEDS ORDERED: HYOS0.12 PO/SL (05:58)
[2019-10-01] MEDS ORDERED: LORA-627 PO (05:58)
[2019-10-01] MEDS ORDERED: CLIN300C8 PO (05:58)
[2019-10-01] MEDS ORDERED: DICL100G18 TP (05:58)
[2019-10-01] MEDS ORDERED: ACET325O6 PO (05:58)
[2019-10-01] MEDS ORDERED: ONDA4TAB7 SL (05:58)
[2019-10-01] MEDS ORDERED: POLY15DR20 EACHEYE (05:58)
[2019-10-01] MEDS ORDERED: LORA-254 PO (05:58)
[2019-10-01] MEDS ORDERED: ALBUTEROL SULFATE 2.5 MG/3 ML NEBU. NEB PRN (09:00)
[2019-10-01] MEDS ORDERED: BISACODYL 10 MG SUPP.RECT RC PRN (09:00)
[2019-10-01] MEDS ORDERED: traMADol 50 MG TABLET PO PRN (09:00)
[2019-10-01] MEDS ORDERED: DICLOFENAC SODIUM 1% TOPICAL GEL 100GM TUBE. TP PRN (09:00)
[2019-10-01] MEDS ORDERED: FAMOTIDINE 20 MG TABLET PO PRN (09:00)
[2019-10-01] MEDS: DOCUSATE SODIUM 100 MG CAPSULE PO SCH (09:57)
[2019-10-01] MEDS: ASPIRIN ENTERIC COATED 81 MG TABLET.DR. PO SCH (09:57)
[2019-10-01] MEDS: OXYBUTYNIN CHLORIDE 5 MG TABLET PO SCH ×3 (09:57→20:09)
[2019-10-01] MEDS: GABAPENTIN 300 MG CAPSULE. PO SCH ×3 (09:57→20:09)
[2019-10-01] MEDS: ATORVASTATIN CALCIUM 10 MG TABLET. PO SCH (09:58)
[2019-10-01] MEDS: CYANOCOBALAMIN (VITAMIN B-12) 1,000 MCG TABLET. PO SCH (09:58)
[2019-10-01] MEDS: TAMSULOSIN 0.4 MG CAP.ER.24H. PO SCH ×2 (09:58→20:09)
[2019-10-01] MEDS: CITALOPRAM 10 MG TABLET. PO SCH (09:58)
[2019-10-01] MEDS: BACLOFEN 10 MG TABLET PO SCH ×3 (09:58→20:09)
[2019-10-01] MEDS: POLYETHYLENE GLYCOL 3350 17 GM PACKET. PO SCH (09:58)
--- NOTE | 2019-10-01 10:52 | HP ---
ADMIT DATE: 10/01/2019 ATTENDING PHYSICIAN: Dr. Obrien. CHIEF COMPLAINT: Altered mentation. HISTORY OF PRESENT ILLNESS: The patient is a 63-year-old female who has been a resident at [facility] for the last several years. She had a stroke with rehabilitation. She is hemiparetic on the left side. She has altered mentation. She has frequent UTIs. She has an indwelling suprapubic catheter. Cultures were drawn. She received dose of empiric antibiotics. She was admitted here for further treatment and evaluation. She has had frequent urinary tract infections in the past. PAST MEDICAL HISTORY: Significant for COPD, depression, essential hypertension, old stroke with hemiparesis, morbid obesity and coronary artery disease. PAST SURGICAL HISTORY: She has had records of a cystoscopy with bladder stone extraction. In addition, she has had placement of a suprapubic catheter in the last year. ALLERGIES: SHE HAS ALLERGIES TO PENICILLIN AND COCONUT. CURRENT MEDICINES: Numerous and include the following: She was scheduled to take baclofen twice a day, albuterol inhaler, acidophilus, aspirin, Lipitor, baclofen as noted, benzocaine, Benadryl, Celexa, clindamycin for a tooth infection, cyanocobalamin, diclofenac, docusate, Pepcid, Neurontin 300 mg 3 times a day, guaifenesin, mineral oil, hydralazine, hydrocodone, hyoscyamine, loratadine, Ativan, magnesium, mineral oil, multivitamin, ondansetron, oxybutynin, MiraLax, simethicone, Flomax and Ultram. FAMILY HISTORY: Unobtainable, patient's condition. She has a daughter out of town that checks in on her. REVIEW OF SYSTEMS: Significant for the stroke, debilitation. She was talking at a baseline with her daughter. She was able to feed herself. The rest of the detailed review of systems is unremarkable. PHYSICAL EXAMINATION: GENERAL: When I saw her, this is a pleasant elderly female who appears debilitated. VITAL SIGNS: Initial vital signs in the ED showed a blood pressure of 146/84 mmHg, temperature was 98.4 degrees Fahrenheit, pulse was 96 and regular, her oxygen saturation adequate on 3 liters of nasal cannula. HEENT: Head is without trauma. Pupils are reactive. Sclerae nonicteric. Oropharynx clear. NECK: Supple. No stridor or obstruction. LUNGS: Shallow respirations, otherwise clear. There are no wheezing, rales or rhonchi. CARDIOVASCULAR: Showed distant heart tones. No gallops. Peripheral pulses are palpable and full. ABDOMEN: Morbidly obese, protuberant. No guarding, no masses palpated. EXTREMITIES: Show trace edema. She has hemiparesis of the left arm and leg. She is nonambulatory. NEUROLOGIC: Speech is somewhat garbled, but she is fairly alert, but she had a stunned look still. There is an indwelling suprapubic catheter that is in place and functioning. PERTINENT LABORATORY STUDIES AND X-RAYS: She had an obligatory CT of the head, which showed no acute strokes or bleeds identified. Chest x-ray showed bilateral atelectasis at the bases. Her hemoglobin was maintained at 11.2 g/dL with a white count of 11,400. Her sodium is 143, potassium 5.7 mEq, CO2 of 44, creatinine 0.5. Nonfasting blood sugar 148. Cultures are pending. Troponins were nonischemic. Urinalysis was abnormal with a pH of 7.5, specific gravity of 1.020, cloudy urine. Sediments, crystals and bacteria were present. Cultures are pending. ASSESSMENT: 1. A 63-year-old detention patient with altered mentation. 2. Urinary tract infection with sepsis syndrome. 3. Morbid obesity. 4. Old cerebrovascular accident with left sided hemiparesis. 5. Hypertension. 6. History of calcium oxalate crystals and stones. 7. History of hyperparathyroidism. 8. History of hypercalcemia. 9. Generalized debilitation. PLAN: 1. Admit to our unit. 2. Ciprofloxacin has been ordered and will be continued pending cultures. 3. Diet as tolerated. 4. Some home meds continued. She remains a full code per advanced directives. FIDENCIO OBRIEN MD DR: SHIRLEY/angel JOB#: [id number] / [id number] ZOE Webber MD
[2019-10-01] MEDS ORDERED: IPRATRPIUM/ALBUTEROL 0.5/2.5MG 3 ML NEBU. NEB SCH (12:00)
[2019-10-01] MEDS: ACETAMINOPHEN 500 MG TABLET PO PRN ×2 (14:50→20:09)
[2019-10-01] MEDS: LORazepam 0.5 MG TABLET PO SCH (20:09)
[2019-10-01] MEDS: LACTOBACILLUS RHAMNOSUS GG 1 CAPSULE. PO SCH (20:09)
[2019-10-02] VITALS (10 sets, daily range): BP systolic 124–164; BP diastolic 72–96
[2019-10-02] MEDS ORDERED: POTASSIUM CHLORIDE 20 MEQ TABLET.ER. PO ONE (07:19)
[2019-10-02] MEDS: BACLOFEN 10 MG TABLET PO SCH ×3 (08:11→21:01)
[2019-10-02] MEDS: ATORVASTATIN CALCIUM 10 MG TABLET. PO SCH (08:12)
[2019-10-02] MEDS: ASPIRIN ENTERIC COATED 81 MG TABLET.DR. PO SCH (08:12)
[2019-10-02] MEDS: TAMSULOSIN 0.4 MG CAP.ER.24H. PO SCH ×2 (08:12→21:01)
[2019-10-02] MEDS: ACETAMINOPHEN 500 MG TABLET PO PRN ×2 (08:12→21:01)
[2019-10-02] MEDS: CYANOCOBALAMIN (VITAMIN B-12) 1,000 MCG TABLET. PO SCH (08:12)
[2019-10-02] MEDS: DOCUSATE SODIUM 100 MG CAPSULE PO SCH (08:12)
[2019-10-02] MEDS: GABAPENTIN 300 MG CAPSULE. PO SCH (08:12)
[2019-10-02] MEDS: POLYETHYLENE GLYCOL 3350 17 GM PACKET. PO SCH (08:13)
[2019-10-02] MEDS: OXYBUTYNIN CHLORIDE 5 MG TABLET PO SCH ×3 (08:13→21:01)
[2019-10-02] MEDS: LACTOBACILLUS RHAMNOSUS GG 1 CAPSULE. PO SCH ×2 (08:13→21:01)
[2019-10-02] MEDS: CITALOPRAM 10 MG TABLET. PO SCH (08:15)
[2019-10-02] MEDS: LORazepam 0.5 MG TABLET PO SCH (21:01)
--- NOTE | 2019-10-02 22:53 | PN ---
DATE: 10/02/2019 ATTENDING PHYSICIAN: Dr. Obrien. CHIEF COMPLAINT: Altered mentation. SUBJECTIVE: The patient is very alert today. She is awake. She answers questions appropriately. We actually had a normal conversation. She remains hemiparetic from her stroke. She is in mild discomfort, but no acute distress. OBJECTIVE FINDINGS: VITAL SIGNS: Her blood pressure today is 145/86, temperature 99.3 degrees Fahrenheit, oxygen saturation 94% on 3 liters of nasal cannula. HEENT: Head is without trauma. Pupils are reactive. Sclerae nonicteric. The oropharynx is clear. NECK: Supple, no bruits. LUNGS: Shallow respirations. CARDIOVASCULAR: Showed regular heart tones. No gallops, no murmurs. Peripheral pulses are palpable. ABDOMEN: Soft, obese, protuberant indwelling suprapubic catheter intact. EXTREMITIES: Showed trace edema. She is hemiparetic on the left side. NEUROLOGIC: Hemiparesis noted, but speech is fluent and we had a very normal conversation. LABORATORY DATA: Urine culture is still pending at this time. ASSESSMENT: 1. A 63-year-old female, long term resident with altered mentation, resolved. 2. Urinary tract infection with sepsis syndrome. 3. Morbid obesity. 4. Old cerebrovascular accident with left-sided hemiparesis. 5. Essential hypertension. 6. History of calcium oxalate crystals. 7. History of hyperparathyroidism. 8. History of hypercalcemia. 9. Generalized debilitation. PLAN: 1. Continue antibiotics. 2. Medications as ordered. 3. Await results of culture. 4. Diet as tolerated. FIDENCIO OBRIEN MD DR: SHIRLEY/angel JOB#: [id number] / [id number]
[2019-10-03] VITALS (9 sets, daily range): BP systolic 106–138; BP diastolic 67–90
--- NOTE | 2019-10-03 07:10 | EKG ---
[address] [address] Test Date: 2019-10-01 Test Time: 00:24:12 Pat Name: TROY SANTIZO Department: Room: ICU03 1 Gender: Manager [employer]ing: : 1955 Requested By: JW MERIDA Order Number: [id number] Reading MD: Dhiraj Morales MD Measurements Intervals Ward Rate: P: [place]: QRS: QRSD: T: QT: QTc: Interpretive Statements SR NON-SPECIFIC ST/T CHANGES Electronically Signed On 10-03-2019 9:18:13 CDT by Dhiraj Morales MD
[2019-10-03] MEDS: DOCUSATE SODIUM 100 MG CAPSULE PO SCH (08:09)
[2019-10-03] MEDS: LACTOBACILLUS RHAMNOSUS GG 1 CAPSULE. PO SCH ×2 (08:09→21:08)
[2019-10-03] MEDS: ACETAMINOPHEN 500 MG TABLET PO PRN (08:09)
[2019-10-03] MEDS: ASPIRIN ENTERIC COATED 81 MG TABLET.DR. PO SCH (08:09)
[2019-10-03] MEDS: TAMSULOSIN 0.4 MG CAP.ER.24H. PO SCH ×2 (08:10→21:08)
[2019-10-03] MEDS: POLYETHYLENE GLYCOL 3350 17 GM PACKET. PO SCH (08:10)
[2019-10-03] MEDS: ATORVASTATIN CALCIUM 10 MG TABLET. PO SCH (08:10)
[2019-10-03] MEDS: OXYBUTYNIN CHLORIDE 5 MG TABLET PO SCH ×3 (08:10→21:08)
[2019-10-03] MEDS: BACLOFEN 10 MG TABLET PO SCH ×3 (08:10→21:08)
[2019-10-03] MEDS: CYANOCOBALAMIN (VITAMIN B-12) 1,000 MCG TABLET. PO SCH (08:10)
[2019-10-03] MEDS: CITALOPRAM 10 MG TABLET. PO SCH (08:11)
[2019-10-03] MEDS: FLUTICASONE 50MCG/NASAL SPRAY 16GM BOTTLE. NS SCH (10:22)
[2019-10-03] MEDS: MORPHINE SULFATE 2 MG/ML DISP.SYRIN. IV PRN ×3 (10:22→21:09)
--- NOTE | 2019-10-03 12:36 | PN ---
DATE: 10/03/2019 ATTENDING PHYSICIAN: Dr. Obrien. SUBJECTIVE: The patient is alert. She has moderate discomfort managed with low dose of morphine. They were able to place a Winkler catheter in addition to her suprapubic catheter. She still has extravasation of urine around the catheter. OBJECTIVE FINDINGS: VITAL SIGNS: Today, she is afebrile. Her blood pressure is 125/90, her pulse is 88 and regular, her oxygen saturation adequate on 2 liters of nasal cannula. HEENT: Head is without trauma. Pupils are reactive. Sclerae nonicteric. Oropharynx is clear. NECK: Supple, no bruits identified. LUNGS: Good breath sounds. CARDIOVASCULAR: Showed regular heart tones. No gallops. Peripheral pulses are palpable and full. ABDOMEN: Obese, protuberant. No organomegaly. Bowel sounds are hypoactive. EXTREMITIES: Showed no cyanosis. She has hemiparesis on the left side. The suprapubic catheter and Winkler catheter are in place and draining. LABORATORY DATA: Blood cultures; one of 4 blood cultures grew gram-positive cocci, which I suspect is a contaminant. Urine culture is still pending. ASSESSMENT: 1. A 63-year-old female with sepsis syndrome, resolved. 2. Urinary tract infection, frequent. 3. Suprapubic catheter. 4. Morbid obesity. 5. Old completed stroke with a left-sided hemiparesis. 6. Essential hypertension. 7. History of calcium oxalate stones. 8. History of hyperparathyroidism. 9. Generalized debilitation. PLAN: 1. Await results of urine and blood cultures. 2. Continue broad spectrum antibiotics as ordered. 3. Diet as tolerated. 4. Follow up chemistry and CBC in the morning. 5. I am trying to contact her urologist, Dr. Lamb at [facility] as to guidance and management of suprapubic catheter. He was supposedly placed a catheter 3 months ago. FIDENCIO OBRIEN MD DR: SHIRLEY/angel JOB#: [id number] / [id number] ZOE Webber MD
[2019-10-03] MEDS: LORazepam 0.5 MG TABLET PO SCH (21:08)
[2019-10-04 02:55] VITALS: BP 105/58
[2019-10-04] MEDS: MORPHINE SULFATE 2 MG/ML DISP.SYRIN. IV PRN ×3 (05:26→23:52)
[2019-10-04 06:10] VITALS: BP 142/83
[2019-10-04] MEDS: FLUTICASONE 50MCG/NASAL SPRAY 16GM BOTTLE. NS SCH (09:00)
[2019-10-04] MEDS: DOCUSATE SODIUM 100 MG CAPSULE PO SCH (09:00)
[2019-10-04] MEDS: OXYBUTYNIN CHLORIDE 5 MG TABLET PO SCH ×3 (09:38→20:46)
[2019-10-04] MEDS: TAMSULOSIN 0.4 MG CAP.ER.24H. PO SCH ×2 (09:38→20:46)
[2019-10-04] MEDS: ASPIRIN ENTERIC COATED 81 MG TABLET.DR. PO SCH (09:38)
[2019-10-04] MEDS: LACTOBACILLUS RHAMNOSUS GG 1 CAPSULE. PO SCH ×2 (09:38→20:46)
[2019-10-04] MEDS: BACLOFEN 10 MG TABLET PO SCH ×3 (09:38→20:45)
[2019-10-04] MEDS: POLYETHYLENE GLYCOL 3350 17 GM PACKET. PO SCH (09:39)
[2019-10-04] MEDS: ATORVASTATIN CALCIUM 10 MG TABLET. PO SCH (09:41)
[2019-10-04] MEDS: CYANOCOBALAMIN (VITAMIN B-12) 1,000 MCG TABLET. PO SCH (09:41)
[2019-10-04] MEDS: CITALOPRAM 10 MG TABLET. PO SCH (09:41)
[2019-10-04 10:23] LABS: BASO # 0.1 x10^3/uL (0.0-0.2); BASO % 1 % (0-3); EOS # 0.2 x10^3/uL (0.0-0.7); EOS % 3 % (0-3); HEMATOCRIT 32.8 % (36.0-47.0); HEMOGLOBIN 10.5 g/dL (12.0-15.5); LYMPH # 2.7 x10^3/uL (1.0-4.8); LYMPH % 34 % (24-48); MEAN CORPUSCULAR HEMOGLOBIN 27 pg (25-35); MEAN CORPUSCULAR HGB CONC 32 g/dL (31-37); MEAN CORPUSCULAR VOLUME 84 fL (79-100); MONO # 0.7 x10^3/uL (0.0-1.1); MONO % 10 % (0-9); NEUT # 4.1 x10^3uL (1.8-7.7); NEUT % 52 % (31-73); PLATELET COUNT 255 x10^3/uL (140-400); RED BLOOD COUNT 3.89 x10^6/uL (3.50-5.40); RED CELL DISTRIBUTION WIDTH 16.4 % (11.5-14.5); WHITE BLOOD COUNT 7.8 x10^3/uL (4.0-11.0)
[2019-10-04 10:32] LABS: CALCIUM 9.9 mg/dL (8.5-10.1); CREATININE 0.6 mg/dL (0.6-1.0); GFR 121.4; POTASSIUM 3.7 mmol/L (3.5-5.1)
[2019-10-04] MEDS ORDERED: ONDANSETRON PF 4 MG/2 ML VIAL. IVP PRN (10:45)
[2019-10-04 12:00] VITALS: BP 130/76
--- NOTE | 2019-10-04 12:45 | PN ---
DATE: 10/04/2019 ATTENDING PHYSICIAN: Dr. Obrien. SUBJECTIVE: The patient is alert. She is not in any discomfort. Pain is managed. She ate breakfast. She denied any nausea or shortness of breath. The Winkler catheter is draining. The suprapubic catheter remains in place. OBJECTIVE FINDINGS: VITAL SIGNS: Her blood pressure today is 142/83, her pulse is 74 and regular, her oxygen saturation 95% on 2 liters nasal cannula, temperature 98.6 degrees Fahrenheit. HEENT: Head is without trauma. The pupils are reactive. The sclerae are nonicteric. Oropharynx is clear. NECK: Supple. There is no stridor. LUNGS: Clear with good breath sounds. CARDIOVASCULAR: Showed distant heart tones. No obvious gallops. Peripheral pulses are palpable and full. ABDOMEN: Protuberant. No organomegaly. No guarding or rebound tenderness. EXTREMITIES: Showed no cyanosis. She has hemiparesis on the left side, suprapubic catheter and Winkler catheter are in place with draining clear urine. LABORATORY DATA: I reviewed the microbiology text. Unfortunately, I do not find any evidence of a urine culture that is in progress. One blood culture out of 4 grew out gram-positive cocci. I still do not have an ID and sensitivity. I suspect this is a contaminant. ASSESSMENT: 1. A 63-year-old female with sepsis syndrome, improving. 2. Urinary tract infection with indwelling suprapubic catheter. 3. Morbid obesity. 4. Old completed stroke with significant left-sided hemiparesis. 5. Essential hypertension, normotensive. 6. History of calcium oxalate stones. 7. History of hyperparathyroidism. 8. Generalized debilitation. The patient has been bedridden in the last several years. PLAN: 1. We shall continue her antibiotics empirically. Unfortunately, I do not have any results of urine culture, nor do I have the identification of the blood culture yet. 2. Diet as tolerated. 3. Followup CBC and chemistry panel in the morning. 4. I did have a chance to speak with Dr. Lamb at [facility]. She called me yesterday and was very gracious and courteous. She feels that we should finish the round of antibiotics for sepsis syndrome. In addition, she feels that she can be discharged back to [facility] with both the Winkler and the suprapubic. The third issue was that she would benefit with Botox injection of the bladder to help the extravasation of the suprapubic catheter. This is done as an outpatient; however, because of changes in her insurance, we will have to find a different specialists urologist. Supposedly, the new [employer] will allow her access to [facility] and they do have Urology specialist on hand. Our tentative goal than is to keep her here for finishing round of IV antibiotics as well as p.o. antibiotics for the course of duration. FIDENCIO OBRIEN MD DR: SHIRLEY/angel JOB#: [id number] / [id number] ecc ,
[2019-10-04 16:00] VITALS: BP 129/72
[2019-10-04 20:16] VITALS: BP 124/74
[2019-10-04] MEDS: LORazepam 0.5 MG TABLET PO SCH (20:45)
[2019-10-04 23:57] VITALS: BP 111/68
[2019-10-05 04:48] VITALS: BP 113/65
[2019-10-05 08:00] VITALS: BP 108/67
[2019-10-05] MEDS: DOCUSATE SODIUM 100 MG CAPSULE PO SCH (08:10)
[2019-10-05] MEDS: CYANOCOBALAMIN (VITAMIN B-12) 1,000 MCG TABLET. PO SCH (08:10)
[2019-10-05] MEDS: ASPIRIN ENTERIC COATED 81 MG TABLET.DR. PO SCH (08:10)
[2019-10-05] MEDS: BACLOFEN 10 MG TABLET PO SCH ×2 (08:10→14:17)
[2019-10-05] MEDS: TAMSULOSIN 0.4 MG CAP.ER.24H. PO SCH (08:10)
[2019-10-05] MEDS: OXYBUTYNIN CHLORIDE 5 MG TABLET PO SCH ×2 (08:10→14:17)
[2019-10-05] MEDS: CITALOPRAM 10 MG TABLET. PO SCH (08:10)
[2019-10-05] MEDS: LACTOBACILLUS RHAMNOSUS GG 1 CAPSULE. PO SCH (08:10)
[2019-10-05] MEDS: ATORVASTATIN CALCIUM 10 MG TABLET. PO SCH (08:11)
[2019-10-05] MEDS: POLYETHYLENE GLYCOL 3350 17 GM PACKET. PO SCH (08:11)
[2019-10-05] MEDS: FLUTICASONE 50MCG/NASAL SPRAY 16GM BOTTLE. NS SCH (08:11)
[2019-10-05 09:33] LABS: CALCIUM 9.7 mg/dL (8.5-10.1); CREATININE 0.7 mg/dL (0.6-1.0); GFR 101.6; POTASSIUM 3.8 mmol/L (3.5-5.1)
[2019-10-05 12:00] VITALS: BP 115/71
[2019-10-05] MEDS ORDERED: LINE600T12 PO (14:14)
--- NOTE | 2019-10-05 14:15 | DISCH ---
DISCHARGE ORDERS DISCHARGE DATE: October 05, 2019 FINAL DIAGNOSIS ams improved left sided hemiplegia CONDITION AT DISCHARGE: Stable SNF STAY <30 DAYS: Yes POST DISCHARGE ORDERS: ACTIVITY ORDERS: Resume previous activity DIET AFTER DISCHARGE: Cardiac DISCHARGE MEDICATIONS: Home Meds Active Scripts Linezolid (ZYVOX) 600 Mg Tablet, 600 MG PO BID PRN for TI for 7 Days, #14 TAB Prov:ZOE ASH MD 10/05/19 Ipratropium/Albuterol Sulfate (DUONEB 0.5-3(2.5) MG/3 ML) 3 Ml Ampul.neb, 3 ML NEB RTQID for 30 Days, #120 EACH Prov:ASHLEY RIVERA DO 02/11/18 Reported Medications Ondansetron Hcl (ZOFRAN) 4 Mg Tablet, 4 MG SL PRN Q4HRS PRN for NAUSEA, TAB 10/01/19 Diclofenac Sodium (VOLTAREN) 100 Gm Gel..gram., 1 GM TP PRN Q4HRS PRN for PAIN for 30 Days, #100 GM 0 Refills apply to affected area(s) 10/01/19 Tamsulosin Hcl (FLOMAX) 0.4 Mg Cap.er.24h, 0.4 MG PO BID for neurogenic bladder, CAP.SR 10/01/19 Polyvinyl Alcohol (POLYVINYL ALCOHOL) 15 Ml Drops, 1 DROP EACHEYE PRN TID PRN for dry eye for 30 Days, #15 ML 0 Refills 10/01/19 Benzocaine (Oral Pain Relief) 9.35 Gm Gel..gram., 9.35 GM MM PRN PRN for tooth pain, EACH 10/01/19 Hydrocodone Bit/Acetaminophen (HYDROCODONE-APAP 5-325 ) 1 Each Tablet, 1 TAB PO PRN Q4HRS PRN for PAIN, TAB 0 Refills 10/01/19 Hydralazine Hcl (HYDRALAZINE HCL) 25 Mg Tablet, 25 MG PO TID for hypertension, TAB 10/01/19 Loratadine/Pseudoephedrine (CLARITIN-D 24 HOUR TABLET) 1 Each Tab.er.24h, 1 EACH PO DAILY for allergies, TAB.SR 10/01/19 Lorazepam (ATIVAN) 1 Mg Tablet, 0.5 MG PO HS for anxiety, TAB 10/01/19 Hyoscyamine Sulfate (ANASPAZ) 0.125 Mg Tab.rapdis, 0.125 MG PO/SL PRN Q6HRS PRN for bladder spasms, TAB 10/01/19 Acetaminophen (Acetaminophen) 325 Mg/10.15 Ml Oral.susp, 650 MG PO DAILY for p ain, LIQUID 10/01/19 Famotidine (FAMOTIDINE) 20 Mg Tablet, 20 MG PO PRN DAILY PRN for HEARTBURN / GAS, TAB 02/08/18 Citalopram Hydrobromide (CELEXA) 10 Mg Tablet, 10 MG PO DAILY, TAB 02/08/18 Guaifenesin/Dextromethorphan (TUSSIN DM MAX LIQUID) 118 Ml Liquid, 10 ML PO PRN Q4HRS PRN for COUGH, LIQUID 02/08/18 Oxybutynin Chloride (OXYBUTYNIN CHLORIDE) 5 Mg Tablet, 1 TAB PO TID, #60 TAB 11 Refills 02/08/18 Tramadol Hcl (TRAMADOL HCL) 50 Mg Tablet, 50 MG PO PRN Q6HRS PRN for PAIN, TAB 02/08/18 Diphenhydramine Hcl (BENADRYL) 25 Mg Capsule, 25 MG PO PRN Q4HRS PRN for ITCHING, CAP 02/08/18 Simethicone (SIMETHICONE) 80 Mg Tab.chew, 80 MG PO PRN Q6HRS PRN for GAS / BLOATING, TAB.CHEW 02/08/18 Mineral Oil/I-Prop Myr/Water (Hydrocerin Lotion) 472 Ml Lotion, 472 ML TP PRN TID PRN for DRY SKIN / SCALING, MISC 02/08/18 Atorvastatin Calcium (LIPITOR) 10 Mg Tablet, 1 TAB PO DAILY for hyperlipidemia, #30 TAB 5 Refills 02/08/18 Aspirin (ASPIRIN EC) 81 Mg Tablet.dr, 1 TAB PO DAILY, #30 TAB 3 Refills 02/08/18 Guaifenesin (MUCINEX) 600 Mg Tablet.er, 1 TAB PO BID PRN for CONGESTION, #14 TAB 02/08/18 Hc/Mineral Oil/Petrolat,Wht (HYDROCORTISONE 1% ABSORBASE) 25 Gm Oint...g., 25 GM TP PRN QID PRN for RASH 09/05/14 Magnesium Hydroxide (MILK OF MAGNESIA) 2,400 Mg/10 Ml Oral.susp, 2400 MG PO PRN DAILY PRN for CONSTIPATION 09/05/14 Bisacodyl (BISACODYL) 10 Mg Supp.rect, 10 MG RC PRN DAILY PRN for CONSTIPATION, SUPP.RECT 0 Refills 09/05/14 Albuterol Sulfate (ALBUTEROL SULFATE NEB SOLN ) 2.5 Mg/3 Ml Vial.neb, 2.5 MG NEB PRN Q6HRS PRN for SHORTNESS OF BREATH, EACH 0 Refills 09/05/14 Multivitamin (MULTIVITAMINS) 1 Each Tablet, 1 EACH PO DAILY for supplement 09/05/14 Polyethylene Glycol 3350 (MIRALAX) 17 Gm Powd.pack, 17 GM PO DAILY for CONSTIPATION 09/05/14 Acidophilus/Bulgaricus (LACTINEX CHEWABLE TABLET) 1 Each Tab.chew, 1 EACH PO BID for intestinal heber , TAB.CHEW 09/05/14 Gabapentin (GABAPENTIN ) 300 Mg Capsule, 300 MG PO TID for nerve pain 09/05/14 Docusate Sodium (COLACE) 100 Mg Capsule, 100 MG PO DAILY for stool softener 09/05/14 Cyanocobalamin (Vitamin B-12) (VITAMIN B-12) 1,000 Mcg Tablet, 500 MCG PO DAILY for supplement 09/05/14 Baclofen (BACLOFEN) 10 Mg Tablet, 10 MG PO TID for MUSCLE SPASMS, #30 TAB 0 Refills 09/05/14 Acetaminophen (ACETAMINOPHEN) 500 Mg Tablet, 500 MG PO PRN Q6HRS PRN for PAIN 09/05/14 Discontinued Reported Medications Clindamycin Hcl (CLINDAMYCIN HCL) 300 Mg Capsule, 300 MG PO Q8HRS for tooth infection, CAP 10/01/19 ZOE ASH MD October 05, 2019 14:15
[2019-10-05 14:41] VITALS: BP 138/82
== END 2019-10-05 16:00 | DRG 689 ==
LOC: ER → ICU 03:00 → ER 04:46
PROVIDERS: ADMIT Hospitalist; ATTEND Internal Medicine
DX: N30.01 Acute cystitis with hematuria (principal); G93.41 Metabolic encephalopathy; A41.9 Sepsis, unspecified organism; T83.518A Infection and inflammatory reaction due to other urinary catheter, initial encounter; I69.354 Hemiplegia and hemiparesis following cerebral infarction affecting left non-dominant side; J98.11 Atelectasis; Z68.42 Body mass index [BMI] 45.0-49.9, adult; E66.01 Morbid (severe) obesity due to excess calories; E87.5 Hyperkalemia; I10 Essential (primary) hypertension; I25.10 Atherosclerotic heart disease of native coronary artery without angina pectoris; J44.9 Chronic obstructive pulmonary disease, unspecified; Z74.01 Bed confinement status; Z87.440 Personal history of urinary (tract) infections; E21.3 Hyperparathyroidism, unspecified; F32.9 Major depressive disorder, single episode, unspecified; F41.9 Anxiety disorder, unspecified; K21.9 Gastro-esophageal reflux disease without esophagitis; Z88.0 Allergy status to penicillin; Z91.018 Allergy to other foods
CPT/HCPCS: 36415; 70450; 71045; 71260; 80048; 80053; 81001; 83605; 84484; 85025; 87040; 87077; 87086; 87205; 93005; 96361; 96365; 96375; J0610; J1956; J2270; J2405; J7040; Q9967; 99291-25; J7030

== ENCOUNTER → 2021-04-25 | Outpatient (CLI) | payer OTHER ==
[~2021-04-25] MED LIST changes: +ACET325O6 PO; +AMLO-187 PO; -AMLO10TA8 PO; -ASPI-612 PO; +ASPI-889 PO; +BENZ9.352 MM; -CIPR500T PO; +CIPR500T2 PO; +CLIN-95 PO; +DICL100G18 TP; +HYDR-2155 PO; +HYDR-2868 PO; +HYOS0.12 PO/SL; +LINE600T12 PO; +LORA-254 PO; +LORA-627 PO; +ONDA4TAB7 SL; -OXYC-411 PO; +OXYC1TAB20 PO; +POLY15DR20 EACHEYE; +TAMS0.4C97 PO
--- NOTE | 2021-04-25 16:50 | RAD ---
EXAMINATION: US BREAST LTD RT, MG DIAGNOSTIC BILAT History: Right breast lump. Comparison: Right breast ultrasound 06/14/2020. Technique: Bilateral digital diagnostic CC mammogram views were obtained. Unable to obtain and MLO vi ews due to patient immobility. CAD was utilized. 3-D tomosynthesis images were acquired. Focused ultr asound of the right breast was performed. Findings: Breast Tissue Density B : There are scattered areas of fibroglandular density. The exam is very limited due to patient immobility. 4 technicians assisted in obtaining the images. T hese are the best images possible. Unable to obtain MLO views. There is a dense mass in the outer right breast measuring 4.2 x 3.7 cm, 8 cm from the nipple. There i s a 9 mm nodular asymmetry in the outer right breast slightly anterior to this, 7.7 cm from the nippl e. No suspicious calcifications. No suspicious mass or calcifications in the visualized portion of th e left breast. Focused ultrasound of the right breast in area of concern demonstrates a hypoechoic microlobulated ma ss with some irregular margins at 10:00 8 cm the nipple. The mass measures 3.5 x 3.1 x 2.9 cm. There is internal vascularity. There is at least one adjacent satellite nodule measuring 8 mm, 1.5 cm away from the dominant mass. No abnormal lymph nodes in the right axilla. IMPRESSION: Suspicious 3.5 cm right breast mass with microlobulated margins. There is at least one adjacent small er nodule measuring 8 mm. Recommend ultrasound-guided biopsy of the dominant right breast mass. BI-RADS 4C-high suspicion for malignancy. RECOMMENDATION: Ultrasound-guided biopsy of the largest right breast mass. A message regarding results and recommendations was left for Dr. Correia at 4:40 PM on 04/25/2021. Electronically signed by: Zara Pascal MD (04/25/2021 4:48 PM) [id number]
== END ==
LOC: MAMMO 12:55
PROVIDERS: ATTEND Internal Medicine
DX: N63.11 Unspecified lump in the right breast, upper outer quadrant (principal)
CPT/HCPCS: 76642; 77066